=== PATIENT | female | born 1995 | race Caucasian/White ===

== ENCOUNTER 2022-03-20 07:16 | Outpatient (REF) | payer BC, SELFPAY ==
[2022-03-20 07:28] LABS: MANUAL DIFF FLAG NO
[2022-03-20 07:54] LABS: Basophils Absolute Auto 0.1 X10*3/uL (0.0-0.2); Basophils Percent Auto 0.7 % (0-2); Eosinophils Absolute Auto 0.3 X10*3/uL (0.0-0.4); Eosinophils Percent Auto 4.4 % (0-4); Hematocrit 38.8 % (37.0-47.0); Hemoglobin 13.2 g/dl (12.0-16.0); Imm Gran Abs Auto 0.02 X10*3/uL (0.00-0.03); Imm Gran Pct Auto 0.3 % (0.0-0.4); Lymphocytes Absolute Auto 2.5 X10*3/uL (1.2-4.9); Lymphocytes Percent Auto 34.7 % (20-40); Mean Corpuscular Hemoglobin 31.4 pg (27.0-33.0); Mean Corpuscular Volume 92.4 fL (80.0-98.0); Monocytes Absolute Auto 0.7 X10*3/uL (0.1-1.2); Monocytes Percent Auto 10.1 % (2-11); Neutrophils Absolute Auto 3.5 x10*3/uL (2.0-8.3); Neutrophils Percent Auto 49.8 % (45-73); Platelet Count 267 X10*3/uL (160-400); Red Cell Distribution Width 12.5 % (11.0-16.0); White Blood Count 7.1 X10*3/uL (4.8-10.8)
[2022-03-20 08:36] LABS: HBS Num1 8.66 mIU/mL (0-7.99); HBc Num1 0.09 S/CO (0.00-0.79); HBsAGNum1 0.25 S/CO (0.00-0.99); Hepatitis B Core Antibody Nonreactive (Nonreactive); Hepatitis B Surface Antigen Negative (Negative); ~HepC Num1 0.16 S/CO (0.00-0.79); ~Hepatitis C Antibody Nonreactive (Nonreactive)
[2022-03-20 08:42] LABS: Alanine Aminotransferase 11 U/L (0-31); Albumin Level 4.1 g/dL (3.5-5.0); Alkaline Phosphatase 52 U/L (39-117); Anion Gap 10 (12-20); Aspartate Amino Transferase 18 U/L (5-31); Bilirubin Total 0.8 mg/dL (0.0-1.0); Blood Urea Nitrogen 13 mg/dL (9-16); Calcium 9.2 mg/dL (8.4-10.2); Carbon Dioxide 25 mmol/L (22-29); Chloride 106 mmol/L (96-108); Cholesterol 136 mg/dL; Estimated Glomerular Filt Rate > 60; Glucose Fasting 81 mg/dL (60-99); HDL Cholesterol 48 mg/dL; LDL Cholesterol Calculated 80 mg/dl; Potassium 4.1 mmol/L (3.3-5.1); Sodium 137 mmol/L (135-145); TSH reflex Free T4 4.14 uIU/mL (0.32-4.0); Total Protein 6.9 g/dL (6.5-8.0); Triglycerides 41 mg/dL
[2022-03-20 09:33] LABS: Free T4 (Free Thyroxine) 0.98 ng/dL (0.71-1.85)
[2022-03-20 10:37] LABS: HBS Num2 10.59 mIU/mL (0-7.99); HBS Num3 10.22 mIU/mL (0-7.99); ~Hepatitis B Surface Antibody GRAYZONE (Nonreactive)
== END 2022-03-20 07:17 | disposition home or self-care (01) ==
LOC: HO.LAB 07:16
PROVIDERS: PCP Hospitalist; Visit Provider Hospitalist
DX: Z00.00 Encounter for general adult medical examination without abnormal findings (principal); Z78.9 Other specified health status
CPT/HCPCS: 36415; 80053; 80061; 84439; 84443; 85025; 86704; 86706; 86803; 87340

== ENCOUNTER 2023-07-09 08:49 | Outpatient (AMB) | payer BC, SELFPAY ==
--- NOTE | 2023-07-09 08:53 | A.OFFPC_ITS ---
Vital Signs 07/09/23 08:55 Height 5 ft 6 in Weight 160 lb BMI 25.8 BP 114/70 Blood Pressure Location Lt brachial Position Sitting Intake Visit Reasons: Transfer Of Care Dr. 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 Accompanied by: Self / Same As Patient Allergies No Known Allergies Allergy (Verified 07/09/23 09:03) Medication List - Last Reconciled 07/09/23 by Devi Boss MD cetirizine (Zyrtec) 10 mg PO DAILY PRN Tobacco use date assessed: 07/09/23 Dental Screening Dental Screen Date: 07/09/23 Did you have a dental visit in the last 12 months?: Yes Did you have a dental problem in the last 6 months where you did not have access to dental care?: No Was dental information given to patient?: Patient has dentist HPI HPI Comments History of Present Illness Details This is a 28 year female that comes for her physical exam. Last Pap smear was February 2023 as per patient. No chest pain or shortness of breath. Has family history of celiac disease in aunt. No change in bowel or bladder habits. [facility] Medical History Eczema Surgical History No pertinent past surgical history Family History (Updated 07/09/23 @ 09:07 by Devi Boss MD) Mother Diabetes Arthritis Father Heart disease Maternal Grandfather Lymphoma Maternal Grandmother Colon cancer Social History (Updated 07/09/23 @ 09:08 by Devi Boss MD) Household Members: Significant Other Housing: House Alcohol intake: current Alcohol intake frequency: a few times a month Alcohol type: hard liquor Patient Tobacco Use Status: Never used Tobacco e-Cigarette/Vaping Use: Never Used Second Hand Smoke Exposure: No service: No Current occupational status: employed Current occupation: nurse Current occupational exposures/hazards: No Sexual orientation: Straight/Heterosexual Gender identity: Female Cognitive needs: No Hearing needs: No Vision needs: Yes Questionnaire PHQ-9 Over the last 2 weeks, how often have you been bothered by any of the following problems? 1. Little interest or pleasure in doing things: not at all 2. Feeling down, depressed, or hopeless: not at all 3. Trouble falling or staying asleep, or sleeping too much: not at all 4. Feeling tired or having little energy: not at all 5. Poor appetite or overeating: not at all 6. Feeling bad about yourself - or that you are a failure or have let yourself or your family down: not at all 7. Trouble concentrating on things, such as reading the newspaper or watching television: not at all 8. Moving or speaking so slowly that other people could have noticed. Or the opposite - being so fidgety or restless that you have been moving around a lot more than usual: not at all 9. Thoughts that you would be better off or of hurting yourself in some way: not at all Total score: 0 Depression Screening Interpretation: Negative Depression Screening Done: Yes 69470 - PHQ-9 Billing: Yes Source: Developed by Drs. Omid Jaeger, Ju Hicks, Salomón Valdivia and colleagues, with an educational ady from [employer]. Thrive Questionnaire Date Thrive assessed: 07/09/23 I am a: Patient What is your living situation today?: I have a steady place to live Within the past 12 months, did the food you bought not last and you didn't have the money to get more?: Never true Within the past 12 months, did you worry whether your food would run out before you got money to buy more?: Never true Do you have trouble paying for medicines?: No Do you have trouble getting transportation to medical appointments?: No Do you have trouble paying your heating and electricity bill?: No Do you have trouble taking care of your child, family member or friend?: No Do you have trouble with day-to-day activities such as bathing, preparing meals, shopping, managing finances, etc.?: No Are you currently unemployed and looking for a job?: No Are you interested in more education?: No Please select the resources that you would like help with: None Currently or been in a relationship where the following occur: no concerns reported THRIVE Score: 0 AUDIT C Alcohol Use Questionnaire (AUDIT-C) 1. How often do you have a drink containing alcohol?: Monthly or less 2. How many drinks containing alcohol do you have on a typical day when you are drinking?: 1 or 2 3. How often do you have six or more drinks on one occasion?: Never Total Score: 1 CHUCKIE-7 AMB Questionnaire CHUCKIE-7 Date CHUCKIE - 7 assessed: 07/09/23 Feeling nervous, anxious, or on edge: 0 = Not at all Not being able to stop or control worryin = Not at all Worrying too much about different things: 0 = Not at all Trouble relaxin = Not at all Being so restless that it is hard to sit still: 0 = Not at all Becoming easily annoyed or irritable: 0 = Not at all Feeling afraid as if something awful might happen: 0 = Not at all Total CHUCKIE-7 score (0-4 normal; 5-9 mild; 10-14 moderate; 15-21 severe): 0 Source: Developed by Drs. Omid Jaeger, Ju Hicks, Salomón Valdivia and colleagues, with an educational ady from [employer]. CHUCKIE-7 Assessment Billing CHUCKIE-7 Assessment Tool: CHUCKIE-7 Assessment 84814 Review of Systems Const All systems reviewed & are unremarkable except as noted in HPI and below Eyes Reports no additional complaints, Denies change in vision and Denies other visual disturbances Card Denies chest pain at rest, Denies chest pain with activity, Denies edema, Denies irregular heart rhythm, Denies claudication, Denies dyspnea, Denies dyspnea on exertion, Denies orthopnea, Denies paroxysmal nocturnal dyspnea and Denies slow heart rate Resp Denies cough, Denies dyspnea and Denies dyspnea on exertion GI Denies abdominal pain, Denies change in bowel habits, Denies excessive flatus, Denies nausea and Denies vomiting Denies urinary incontinence, Denies urinary hesitancy and Denies urinary urgency Musc Denies abnormal gait, Denies atrophy, Denies deformity and Denies limited range of motion Skin/Breast Denies bleeding lesions, Denies changing lesions and Denies rash Neuro Denies abnormal gait and Denies lack of coordination Physical exam (Primary Care) Vital Signs: Last Vital Signs BP 114/70 07/09/23 08:55 BMI result Body Mass Index 25.8 Tobacco/Smoking Status: Tobacco use Status Tobacco use date assessed 07/09/23 07/09/23 09:01 Patient Tobacco Use Status Never used Tobacco 07/09/23 09:08 e-Cigarette/Vaping Use Never Used 07/09/23 09:08 PHQ-9: PHQ-9 Score PHQ-9: Total score 0 07/09/23 09:10 Depression Screening Interpretation: Negative Thrive Assessment: Date of Thrive Assessment Date Thrive assessed 07/09/23 07/09/23 09:01 Currently or been in a relationship where the following occur: no concerns reported Const Orientation/consciousness: patient oriented x3 HENMT Head: Yes normal to inspection, Yes normocephalic and Yes atraumatic Ears: external ears normal Eyes General: appearance normal, both eyes and all related structures Eyelids: Yes eyelids normal Conjunctivae: conjunctivae normal Neck Neck: Yes normal visual inspection and Yes supple Resp Effort & Inspection: normal respiratory effort Auscultation: clear to auscultation bilaterally Cardio Jugular venous distension: no JVD Rate: regular rate Rhythm: regular rhythm Heart sounds: S1 normal heart sound present and S2 normal heart sound present GI Inspection: Yes normal to inspection Palpation (GI): Soft to palpation and nontender Auscultation: normal bowel sounds Skin General skin exam: no rashes or lesions noted Neuro General: patient oriented x3 and no focal motor deficits Extrem General: Yes full ROM Psych Appearance: grossly normal Assessment and Plan Assessment & Plan (1) Physical exam: Code(s): Z00.00 - Encounter for general adult medical examination without abnormal findings Plan: Repeat in a year. Orders: Orders Celiac Diagnostic Gliadin TTG Today Z83.79 - Family history of other diseases of the digestive system Free T4 (Free Thyroxine) Today R79.89 - Other specified abnormal findings of blood chemistry Thyroglobulin Antibodies Today R79.89 - Other specified abnormal findings of blood chemistry Thyroid Peroxidase Antibodies Today R79.89 - Other specified abnormal findings of blood chemistry Lipid Panel Today Z00.00 - Encounter for general adult medical examination without abnormal findings Comprehensive [place]. Panel Fast Today Z00.00 - Encounter for general adult medical examination without abnormal findings Complete Blood Count Auto Diff Today J30.2 - Other seasonal allergic rhinitis Hepatitis B Profile Today Z13.9 - Encounter for screening, unspecified Thyroid Stimulating Hormone Today R79.89 - Other specified abnormal findings of blood chemistry Coding Level of Care Code Est Pt Prev Care 18-39y(44212) Diagnoses Physical exam Z00.00 Additional Codes CHUCKIE-7 Assessment Billing - CHUCKIE-7 Assessment Tool: CHUCKIE-7 Assessment 13325 ([id number]) Time Spent (min) 31
[2023-07-09 08:55] VITALS: BP 114/70; BMI 25.8
== END 2023-07-09 09:32 | disposition home or self-care (01) ==
PROVIDERS: PCP Hospitalist; Visit Provider Internal Medicine
DX: Z00.00 Encounter for general adult medical examination without abnormal findings (principal)
CPT/HCPCS: 99395

== ENCOUNTER 2023-07-17 06:47 | Outpatient (REF) | payer BC, SELFPAY ==
[2023-07-17 06:59] LABS: MANUAL DIFF FLAG NO
[2023-07-17 07:43] LABS: Basophils Absolute Auto 0.1 X10*3/uL (0.0-0.2); Basophils Percent Auto 0.9 % (0-2); Eosinophils Absolute Auto 0.2 X10*3/uL (0.0-0.4); Hematocrit 39.4 % (37.0-47.0); Hemoglobin 13.3 g/dl (12.0-16.0); Imm Gran Abs Auto 0.01 X10*3/uL (0.00-0.03); Imm Gran Pct Auto 0.2 % (0.0-0.4); Lymphocytes Absolute Auto 2.7 X10*3/uL (1.2-4.9); Lymphocytes Percent Auto 45.6 % (20-40); Mean Corpuscular HGB Conc 33.8 g/dl (31.0-35.0); Mean Corpuscular Hemoglobin 31.1 pg (27.0-33.0); Mean Corpuscular Volume 92.3 fL (80.0-98.0); Mean Platelet Volume 10.2 fL (9.4-12.3); Monocytes Absolute Auto 0.6 X10*3/uL (0.1-1.2); Monocytes Percent Auto 10.2 % (2-11); Neutrophils Absolute Auto 2.3 x10*3/uL (2.0-8.3); Neutrophils Percent Auto 39.1 % (45-73); Platelet Count 248 X10*3/uL (160-400); Red Blood Count 4.27 X10*6/uL (4.20-5.50); Red Cell Distribution Width 13.1 % (11.0-16.0); White Blood Count 5.8 X10*3/uL (4.8-10.8)
[2023-07-17 07:47] LABS: Alanine Aminotransferase 11 U/L (0-31); Albumin Level 4.1 g/dL (3.5-5.0); Alkaline Phosphatase 51 U/L (39-117); Anion Gap 9 (12-20); Aspartate Amino Transferase 16 U/L (5-31); Bilirubin Total 0.5 mg/dL (0.0-1.0); Blood Urea Nitrogen 13 mg/dL (9-16); Calcium 8.9 mg/dL (8.4-10.2); Carbon Dioxide 27 mmol/L (22-29); Chloride 108 mmol/L (96-108); Cholesterol 138 mg/dL (<200); Estimated Glomerular Filt Rate > 60; Glucose Fasting 83 mg/dL (60-99); HDL Cholesterol 46 mg/dL (>40); LDL Cholesterol Calculated 84 mg/dL (<100); Potassium 4.2 mmol/L (3.3-5.1); Sodium 140 mmol/L (135-145); Total Protein 7.1 g/dL (6.5-8.0); Triglycerides 41 mg/dL (<150)
[2023-07-17 08:03] LABS: Free T4 (Free Thyroxine) 0.98 ng/dL (0.71-1.85); Thyroid Stimulating Hormone 3.02 uIU/mL (0.32-4.0)
[2023-07-17 08:07] LABS: HBS Num1 11.12 mIU/mL (0-7.99); HBc Num1 0.11 S/CO (0.00-0.79); HBsAGNum1 0.44 S/CO (0.00-0.99); Hepatitis B Core Antibody Nonreactive (Nonreactive); Hepatitis B Surface Antigen Negative (Negative)
[2023-07-17 08:59] LABS: HBS Num2 11.23 mIU/mL (0-7.99); HBS Num3 11.66 mIU/mL (0-7.99); ~Hepatitis B Surface Antibody GRAYZONE (Nonreactive)
[2023-07-18 10:48] LABS: Thyroglobulin Antibodies <1 IU/mL (< or = 1); Thyroid Peroxidase Antibodies 6 IU/mL (<9)
[2023-07-18 22:08] LABS: Gliadin Deamidated IgA Ab <1.0 U/mL; Gliadin Deamidated IgG Ab <1.0 U/mL; Immunoglobulin A 176 mg/dL (47-310); Transglutaminase Ab IgG <1.0 U/mL; Transglutaminase IgA <1.0 U/mL
== END 2023-07-17 06:48 | disposition home or self-care (01) ==
LOC: HO.LAB 06:47
PROVIDERS: PCP Internal Medicine; Visit Provider Internal Medicine
DX: Z00.00 Encounter for general adult medical examination without abnormal findings (principal); Z13.9 Encounter for screening, unspecified; J30.2 Other seasonal allergic rhinitis; R79.89 Other specified abnormal findings of blood chemistry; Z83.79 Family history of other diseases of the digestive system; R94.6 Abnormal results of thyroid function studies
CPT/HCPCS: 36415; 80053; 80061; 82784; 84439; 84443; 85025; 86258; 86364; 86376; 86704; 86706; 86800; 87340

== ENCOUNTER 2023-10-15 16:43 | Outpatient (AMB) | payer BC, SELFPAY ==
--- NOTE | 2023-10-15 17:06 | AM.OFFVISNUR ---
Intake Intake Visit Reasons: Hep B vaccine Allergies No Known Allergies Allergy (Verified 07/09/23 09:03) Immunizations Engerix-B (PF) 20 mcg/mL intramuscular syringe Performing Provider: Devi Boss MD Performing Location: [facility] Administered by: Kindra Auguste RN on 10/15/23 17:09 Dose Route Admin Location Dispensed Lot Number Expiration Date NDC Size Maker 1 mL IM Right Deltoid 1 mL [id number] 03/28/24 [id number] [employer] VIS Given Date VIS Provided VIS Publication Date 10/15/23 Single Vaccine 22 Eligibility Eligibility Date Funding Source Not [facility] Eligible 10/15/23 Private Recombivax HB (PF) 10 mcg/mL intramuscular suspension Performing Provider: Devi Boss MD Performing Location: [facility] Documented (not given) by: Kindra Auguste RN on 10/15/23 17:07 Reason Not Given: Not Given Coding Assessment & Plan Assessment & Plan Orders: Orders Hepatitis B Adult Immunization Today Z23 - Encounter for immunization Hepatitis B Adult Immunization Today Z23 - Encounter for immunization Medications: New Engerix-B (PF) (hepatitis B virus vacc.rec(PF)) 1 mL IM ONCE 1 mL 0RF NS Z23 - Encounter for immunization
== END 2023-10-15 17:11 | disposition home or self-care (01) ==
PROVIDERS: PCP Internal Medicine; Visit Provider Internal Medicine
DX: Z23 Encounter for immunization (principal)
CPT/HCPCS: 90471; 90746

== ENCOUNTER 2023-11-14 16:36 | Outpatient (AMB) | payer BC, SELFPAY ==
--- NOTE | 2023-11-14 16:53 | AM.OFFVISNUR ---
Intake Visit Reasons: Hep B vaccine Allergies No Known Allergies Allergy (Verified 07/09/23 09:03) Assessment & Plan Assessment & Plan Orders: Orders Hepatitis B Adult Immunization Today Z23 - Encounter for immunization Medications: New Engerix-B (PF) (hepatitis B virus vacc.rec(PF)) 1 mL IM ONCE 1 mL 0RF NS Z23 - Encounter for immunization
== END 2023-11-14 16:51 | disposition home or self-care (01) ==
PROVIDERS: PCP Internal Medicine; Visit Provider Internal Medicine
DX: Z23 Encounter for immunization (principal)
CPT/HCPCS: 90471; 90746

== ENCOUNTER → 2024-05-18 16:22 | Outpatient (BNVA) | payer OTHER, SELFPAY | PROVIDERS: PCP Internal Medicine; Visit Provider Internal Medicine | DX: Z23 Encounter for immunization (principal) | CPT/HCPCS: 90471; 90746 ==

== ENCOUNTER 2024-05-18 16:24 | Outpatient (AMB) | payer OTHER, SELFPAY ==
--- NOTE | 2024-05-18 16:30 | AM.OFFVISNUR ---
Intake Visit Reasons: HEP B vaccine Allergies No Known Allergies Allergy (Verified 07/09/23 09:03) Immunizations Recombivax HB (PF) 10 mcg/mL intramuscular suspension Performing Provider: Devi Boss MD [facility] [place] [facility] Administered by: Laura Arellano LPN on 05/18/24 16:30 Dose Route Admin Location Dispensed Lot Number Expiration Date [facility] Account Development Representative 1 mL IM Left Deltoid 1 mL [id number] 12/13/25 [id number] [employer] VIS Given Date VIS Provided VIS Publication Date 05/18/24 Single Vaccine 22 Eligibility Eligibility Date Funding Source Not [facility] Eligible 05/18/24 Private Assessment & Plan Assessment & Plan Orders: Orders Hepatitis B Adult Immunization Today Z23 - Encounter for immunization Medications: New Recombivax HB (PF) (hepatitis B virus vacc.rec(PF)) 1.0 mL IM ONCE 1 mL 0RF immunization due NS Z23 - Encounter for immunization Coding
--- OUTSIDE RECORDS SUMMARY | 2024-05-18 19:51 | XMS_ITS ---
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 Name Role Phone JUANIS MARCUM Unavailable Unavailable Unavailable Unavailable Unavailable PAULINE HARDING Unavailable Unavailable PAULINE HARDING Unavailable Unavailable Unavailable Primary Care Provider Unavailrobert e Allergies Allergy Classification Reported Allergen(s) Allergy Type Date of Onset Reaction(s) Care Provider Facility Unclassified (1 source) ALLERGIES NOT ON FILE [facility] Encounters Encounter Date Encounter Type Encounter Diagnosis Care Provider Facility Start: 09-24-2023 12:00-0400 End: 09-25-2023 02:31-0400 Emergency department patient visit Activity, mountain climbing, rock climbing and wall climbing JUANIS Marcum MD Work Phone: [facility] Comment on above: Injury while rock cl imbing (Primary Dx) End: 09-25-2023 [id number] [facility] Emergency department [facility] Immunizations Immunization Date Immunization Notes Care Provider Fa cility 09-24-2023 tetanus toxoid, redu fannie diphtheria toxoid, and acellular pertussis vaccine, adsorbed Juanis Marcum MD Work Phone: [facility] Work Phone: Medications Completed/Discontinued Medications Medication Drug Class(es) Dates Sig (Normalized) Sig (Original) ceFAZolin (ANCEF) 2 g in 20 mL SWFI syringe (premix) (1 source) Start: 09-24-2023 End: 09-24-2023 ceFAZolin (ANCEF) 2 g in 20 mL SWFI syringe (premix) iohexol (OMNIPAQUE) 350 mg/mL injection 130 mL (1 source) Start: 09-24-2023 End: 09-24-2023 iohexol (OMNIPAQUE) 350 mg/mL injection 130 mL 50 ML sodium chloride 9 MG/ML Injection (1 source) Start: 09-24-2023 End: 09-25-2023 sodium chloride 0.9 % (NS) bolus Payers Date Payer Normalized Payer BLUE CROSS OUT [facility] BLUE CROSS/BLUE SHIELD [id number] 04-22-2023 [id number] Plan of Treatment Date Care Activity Detail Author Start: 09-23-2033 DTaP/Tdap/Td Vaccine s (2 - Td or Tdap) DTaP/Tdap/Td Vaccines (2 - Td or Tdap) [facility] Start: 11-21-2023 Administration of influenza vaccine Influenza Vaccine [facility] Start: 12-21-2022 COVID-19 Vaccine ( season) COVID-19 Vaccine ( season) [facility] Start: 06-26-2015 Microscopic observat ion [Identifier] in Cervix by Cyto stain Pap Smear (Ages 21-65) [facility] Start: 2013 Hepatitis B Vaccines (1 of 3 - 19+ 3-dose series) Hepatitis B Vaccines (1 of 3 - 19+ 3-dose series) [facility] Start: 06-26-2007 HIV Screening HIV Screening [facility] Start: 1994 Hepatitis C screening Hepatiti s C Virus Screening [facility] End: 09-24-2023 Amphetamine Screen, Urine Amphetamine Screen, Urine Lab Routine STAT for 1 Occurrences starting 09/24/2023 until 09/24/2023 [facility] Work Phone: Comment on above: STAT for 1 Occurrenc es starting 09/24/2023 until 09/24/2023 End: 09-24-2023 Benzodiazepine Screen, Urine Benzodiazepine Screen, Urine Lab Routine STAT for 1 Occurrences starting 09/24/2023 until 09/24/2023 [facility] Comment on above: STAT for 1 Occurrenc es starting 09/24/2023 until 09/24/2023 End: 09-24-2023 Cannabinoid Screen, Urine Cannabinoid Screen, Urine Lab Routine STAT for 1 Occurrences starting 09/24/2023 until 09/24/2023 [facility] Comment on above: STAT for 1 Occurrenc es starting 09/24/2023 until 09/24/2023 End: 09-24-2023 Cocaine Screen, Urine Cocaine Screen, Urine Lab Routine STAT for 1 Occurrences starting 09/24/2023 until 09/24/2023 [facility] Comment on above: STAT for 1 Occurrenc es starting 09/24/2023 until 09/24/2023 End: 09-24-2023 Fentanyl Screen, Urine Fentanyl Screen, Urine Lab Routine STAT for 1 Occurrences starting 09/24/2023 until 09/24/2023 [facility] Comment on above: STAT for 1 Occurrenc es starting 09/24/2023 until 09/24/2023 End: 09-24-2023 Opiate Screen, Urine Opiate Screen, Urine Lab Routine STAT for 1 Occurrences starting 09/24/2023 until 09/24/2023 [facility] Comment on above: STAT for 1 Occurrenc es starting 09/24/2023 until 09/24/2023 End: 09-24-2023 Phencyclidine (PCP) Screen, Urine Phencyclidine (PCP) Screen, Urine Lab Routine STAT for 1 Occurrences starting 09/24/2023 until 09/24/2023 [facility] Comment on above: STAT for 1 Occurrenc es starting 09/24/2023 until 09/24/2023 Problems Active Problems Problem Classification Problem Date Last Recorded Documented Date Chronic Condition Indicator Provider E Codes: Unspecified (7 sources) Activity, mountain climbing, rock climbing and wall climbing; Translations: [Activities involving mountain climbing, rock climbing and wall climbing] 09-25-2023 Not applicable JUANIS MARCUM E Codes: Fall (3 sources) Fall; Translations: [Fall] 09-24-2023 Procedures Date Procedure Procedure Detail Performing Clinician Start: 09-24-2023 End: 09-24-2023 Radex elbow 2 views completed Pauline Rogers Work Phone: Start: 09-24-2023 Ct cervical spine w/ o contrast material completed Pauline Harding PA-C Work Phone: Start: 09-24-2023 Ct head/brain w/o co ntrast material completed Pauline Harding PA-C Work Phone: Start: 09-24-2023 Diagnostic computed tomography thorax w/contrast completed Pauline Harding PA-C Work Phone: Start: 09-24-2023 Portable XR Chest Views completed Pauline [facility] Work Phone: Start: 09-24-2023 ABO CONFIRMATION completed Yaron [facility] Work Phone: Start: 09-24-2023 Amylase [Enzymatic activity/volume] in Serum or Plasma completed Pauline [employer] Work Phone: Start: 09-24-2023 Blood typing serologic abo completed Pauline [employer] Work Phone: Start: 09-24-2023 End: 09-24-2023 Comprehensive metabolic panel completed Pauline Harding PA-C Work Phone: Start: 09-24-2023 Creatine kinase [Enz ymatic activity/volume] in Serum or Plasma completed Pauline Harding PA-C Work Phone: Start: 09-24-2023 Ethanol [Mass/volume ] in Serum or Plasma completed Pauline Harding PA-C Work Phone: Start: 09-24-2023 Lactate [Moles/volum e] in Serum or Plasma completed Pauline [facility] Work Phone: Start: 09-24-2023 Lipase [Enzymatic activity/volume] in Serum or Plasma completed Pauline [facility] Work Phone: Start: 09-24-2023 Magnesium [Mass/volu me] in Serum or Plasma completed Pauline [employer] Work Phone: Start: 09-24-2023 Phosphate [Mass/volu me] in Serum or Plasma completed Pauline [facility] Work Phone: Results Test Name Value Interpretation Reference Range Facility Date Time Result Note ABO Confirmationon ABO and Rh group (Bld) Blood group O Rh(D) positive [facility] 09-23 22:36 -0400 <tr><td>ABO/Rh< /td><td>O POSITIVE</td><t d></td><td></td ><td>09/24/2023 10:33 PM EDT</td><td>[facility]</td><t d></td></tr> Amylaseon 09-24-2023 Amylase [Catalytic activity/Vol] 66 U/L 28 - 100 U/L [facility] 09-23 22:15 -0400 Amylase 66 28 - 100 U/L 09/24/2023 10:15 PM EDT [facility] Amylase SerPl-cCncon 024 Amylase [Catalytic activity/Vol] 66 28-100 U/L [facility] 09-23 22:15 -0400 Attachmentson 09-24-2023 Radiology Study observation (narrative) [facility] CBC, with Differentialon Basophils Auto (Bld) [#/Vol] 0.06 [facility] 09-23 21:47 -0400 <tr><td>Abs Basophils Auto</td><td>0. 06</td><td>0.00 - 0.20 Thou/uL</td><td ></td><td>09/23 9:47 PM EDT</td><td>[facility]</td><t d></td></tr> Basophils/100 WBC Auto (Bld) 0.5 % [facility] 09-23 21:47 -0400 Eosinophils Auto (Bld) [#/Vol] 0.17 [facility] 09-23 21:47 -0400 <tr><td>Abs Eosinophils Auto</td><td>0. 17</td><td>0.00 - 0.70 Thou/uL</td><td ></td><td>09/23 9:47 PM EDT</td><td>[facility]</td><t d></td></tr> Eosinophils/10 0 WBC Auto (Bld) 1.5 % [facility] 09-23 21:47 -0400 RBC Auto (Bld) [#/Vol] 3.94 Low [facility] 09-23 21:47 -0400 <tr><td>Red Blood Cell Count</td><td>< content>3.94</c ontent><content > (L)</content></ td><td>4.00 - 5.40 Mil/uL</td><td> </td><td>2023 9:47 PM EDT</td><td>[facility]</td><t d></td></tr> Hematocrit Auto (Bld) [Volume fraction] 36.6 35.0-47.0 % [facility] 09-23 21:47 -0400 Hemoglobin (Bld) [Mass/Vol] 12.3 11.7-15.7 g/dL [facility] 09-23 21:47 -0400 Lymphocytes Auto (Bld) [#/Vol] 2.30 [facility] 09-23 21:47 -0400 <tr><td>Abs Lymphocytes Auto</td><td>2. 30</td><td>1.50 - 4.50 Thou/uL</td><td ></td><td>09/23 9:47 PM EDT</td><td>[facility]</td><t d></td></tr> Lymphocytes/10 0 WBC Auto (Bld) 20.3 % [facility] 09-23 21:47 -0400 MCH Auto (RBC) [Entitic mass] 31.2 26.0-34.0 pg [facility] 09-23 21:47 -0400 MCHC Auto (RBC) [Mass/Vol] 33.6 30.0-36.0 g/dL [facility] 09-23 21:47 -0400 MCV Auto (RBC) [Entitic vol] 93 80-100 fL [facility] 09-23 21:47 -0400 Monocytes Auto (Bld) [#/Vol] 0.63 [facility] 09-23 21:47 -0400 <tr><td>Abs Monocytes Auto</td><td>0. 63</td><td>0.20 - 1.50 Thou/uL</td><td ></td><td>09/23 9:47 PM EDT</td><td>[facility]</td><t d></td></tr> Monocytes/100 WBC Auto (Bld) 5.6 % [facility] 09-23 21:47 -0400 Neutrophils Auto (Bld) [#/Vol] 8.09 High [facility] 09-23 21:47 -0400 <tr><td>Abs Neutrophils Auto</td><td><c ontent>8.09</co ntent><content> (H)</content></ td><td>2.00 - 7.50 Thou/uL</td><td ></td><td>09/23 9:47 PM EDT</td><td>[facility]</td><t d></td></tr> Neutrophils/10 0 WBC Auto (Bld) 71.4 % [facility] 09-23 21:47 -0400 Platelet mean volume Auto (Bld) [Entitic vol] 10.3 7.5-12.5 fL [facility] 09-23 21:47 -0400 Platelets Auto (Bld) [#/Vol] 288 [facility] 09-23 21:47 -0400 <tr><td>Platele t Count</td><td>2 88</td><td>150 - 450 Thou/uL</td><td ></td><td>09/23 9:47 PM EDT</td><td>[facility]</td><t d></td></tr> Erythrocyte distribution width Auto (RBC) [Ratio] 13.1 11.5-14.5 % [facility] 09-23 21:47 -0400 WBC Auto (Bld) [#/Vol] 11.3 High [facility] 09-23 21:47 -0400 <tr><td>White Blood Cell Count</td><td>< content>11.3</c ontent><content > (H)</content></ td><td>4.0 - 11.0 Thou/uL</td><td ></td><td>09/23 9:47 PM EDT</td><td>[facility]</td><t d></td></tr> Immature granulocytes/1 00 WBC Auto (Bld) 0.7 % [facility] 09-23 21:47 -0400 Immature granulocytes Auto (Bld) [#/Vol] 0.08 [facility] 09-23 21:47 -0400 <tr><td>Abs Immature Granulocytes</t d><td>0.08</td> <td>0.00 - 0.10 Thou/uL</td><td ></td><td>09/23 9:47 PM EDT</td><td>[facility]</td><t d></td></tr> CK SerPl-cCncon 09-24-2023 CK [Catalytic activity/Vol] 97 24-173 U/L [facility] 09-23 22:15 -0400 CT Chest Abdomen Pelvis with IV Contraston 09-24-2023 1. No acute traumatic injuries are identified in the chest, abdomen, and pelvis. 2. No fracture or malalignment in the thoracolumbar spine. 3. Hyperattenuatin g soft tissue prominence in the anterior mediastinum. 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 Further evaluation with dedicated nonemergent MRI can be performed if clinically indicated. Sepideh Palacio MD Diagnostic Diver Tender I personally reviewed the images and the Resident's preliminary report and AGREE with the report as it is now presented ([email or web address]). [facility]ISON 09-23 23:24 -0400 1. No acute traumatic injuries are identified in the chest, abdomen, and pelvis. 2. No fracture or malalignment in the thoracolumbar spine. 3. Hyperattenuatin g soft tissue prominence in the anterior mediastinum. 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 Further evaluation with dedicated nonemergent MRI can be performed if clinically indicated. Sepideh Palacio MD Diagnostic Diver Tender I personally reviewed the images and the Resident's preliminary report and AGREE with the report as it is now presented ([email or web address]). EXAMINATION: CT CHEST, ABDOMEN AND PELVIS WITH CONTRAST CT THORACIC AND LUMBAR SPINE WITHOUT CONTRAST (REFORMATS) CLINICAL INFORMATION: Status post 30ft fall. COMPARISON: None available. TECHNIQUE: Multidetector volumetric imaging was performed from the thoracic inlet through the pubic symphysis following the administration of: Oral contrast: No Intravenous contrast: 130 mL Omnipaque 350 No contrast reaction reported Sagittal and coronal reformatted images were obtained on the technologist workstation. In addition, thin section, high resolution reconstruction, targeted reformatted images through the thoracic and lumbar spine were obtained with coronal and sagittal high resolution reformatted images as well. This CT examination was performed using dose optimization techniques as appropriate, variously including the following: *Automated exposure control *Adjustment of mA and/or kV according to patient size (this includes techniques or standardized protocols for targeted exams where dose is matched to indication/reas on for exam; i.e. extremities or head) *Use of iterative reconstruction technique Total exam dose-length product: 490.3 mGy-cm FINDINGS: CHEST: VASCULAR: The aorta is normal; no evidence of dissection, aneurysm, or traumatic aortic injury. The central pulmonary arteries enhance normally. AORTIC ISTHMUS: Normal. MEDIASTINUM: No mediastinal fluid or hematoma. No pneumomediastin um. There is hyperattenuatin g soft tissue prominence in the anterior mediastinum with Hounsfield units 53 (303:200). No hilar or mediastinal lymphadenopathy . LUNG: Central airways are patent. No focal consolidation, masses or nodules. CORONARY ARTERY CALCIFICATION: None visualized on this study. PLEURA: No pleural effusion. No pneumothorax. No pleural mass or thickening. CHEST WALL/AXILLA: No traumatic injuries. No axillary lymphadenopathy . DIAPHRAGMATIC RUPTURE: Absent ABDOMEN/PELVIS: LIVER : The liver is normal in size, shape, and attenuation. No focal hepatic lesion or biliary ductal dilatation is present. GALLBLADDER, AND BILIARY TREE The gallbladder is unremarkable with no evidence of radiopaque gallstones, gallbladder wall thickening, or obvious pericholecystic inflammatory changes. PANCREAS: Normal; no mass or surrounding fluid. SPLEEN: Normal size. No focal lesion. ADRENAL GLANDS: Normal; no mass. KIDNEYS AND URETERS: The kidneys are normal in size, shape, and attenuation. No hydronephrosis, hydroureter, or calculi. URINARY BLADDER: No focal mass or wall thickening seen. No bladder calculi. GASTROINTESTINA L TRACT: Stomach and small bowel non-dilated. No colonic wall thickening or pericolonic inflammatory changes. Moderate colonic stool burden. Normal appendix. VASCULAR STRUCTURES: There is no evidence of aortic or iliac injury. The inferior vena cava is intact. ACTIVE BLEEDING: No. LYMPH NODES: No lymphadenopathy . The aorta is unremarkable. PELVIC VISCERA: Normal CT appearance of the uterus. IUD is observed within the uterus. No adnexal mass seen. FREE FLUID: None. ABDOMINAL WALL: No significant hernia is appreciated. THORACIC AND LUMBAR SPINE: No acute fracture or malalignment in the thoracolumbar spine. Normal sagittal alignment of the thoracic and lumbar spine. Vertebral body heights are normal. Posterior elements are intact. Intervertebral disc heights are normal. OTHER OSSEOUS STRUCTURES: The imaged portions of the clavicles, scapulae, and proximal humeri are intact. No displaced rib fracture is identified. Sternum is intact. No sacral or pelvic fracture. The hips and imaged portions of the proximal femurs are intact. [facility]ISON 09-23 23:24 -0400 EXAMINATION: CT CHEST, ABDOMEN AND PELVIS WITH CONTRAST CT THORACIC AND LUMBAR SPINE WITHOUT CONTRAST (REFORMATS) CLINICAL INFORMATION: Status post 30ft fall. COMPARISON: None available. TECHNIQUE: Multidetector volumetric imaging was performed from the thoracic inlet through the pubic symphysis following the administration of: Oral contrast: No Intravenous contrast: 130 mL Omnipaque 350 No contrast reaction reported Sagittal and coronal reformatted images were obtained on the technologist workstation. In addition, thin section, high resolution reconstruction, targeted reformatted images through the thoracic and lumbar spine were obtained with coronal and sagittal high resolution reformatted images as well. This CT examination was performed using dose optimization techniques as appropriate, variously including the following: *Automated exposure control *Adjustment of mA and/or kV according to patient size (this includes techniques or standardized protocols for targeted exams where dose is matched to indication/reas on for exam; i.e. extremities or head) *Use of iterative reconstruction technique Total exam dose-length product: 490.3 mGy-cm FINDINGS: CHEST: VASCULAR: The aorta is normal; no evidence of dissection, aneurysm, or traumatic aortic injury. The central pulmonary arteries enhance normally. AORTIC ISTHMUS: Normal. MEDIASTINUM: No mediastinal fluid or hematoma. No pneumomediastin um. There is hyperattenuatin g soft tissue prominence in the anterior mediastinum with Hounsfield units 53 (303:200). No hilar or mediastinal lymphadenopathy . LUNG: Central airways are patent. No focal consolidation, masses or nodules. CORONARY ARTERY CALCIFICATION: None visualized on this study. PLEURA: No pleural effusion. No pneumothorax. No pleural mass or thickening. CHEST WALL/AXILLA: No traumatic injuries. No axillary lymphadenopathy . DIAPHRAGMATIC RUPTURE: Absent ABDOMEN/PELVIS: LIVER : The liver is normal in size, shape, and attenuation. No focal hepatic lesion or biliary ductal dilatation is present. GALLBLADDER, AND BILIARY TREE The gallbladder is unremarkable with no evidence of radiopaque gallstones, gallbladder wall thickening, or obvious pericholecystic inflammatory changes. PANCREAS: Normal; no mass or surrounding fluid. SPLEEN: Normal size. No focal lesion. ADRENAL GLANDS: Normal; no mass. KIDNEYS AND URETERS: The kidneys are normal in size, shape, and attenuation. No hydronephrosis, hydroureter, or calculi. URINARY BLADDER: No focal mass or wall thickening seen. No bladder calculi. GASTROINTESTINA L TRACT: Stomach and small bowel non-dilated. No colonic wall thickening or pericolonic inflammatory changes. Moderate colonic stool burden. Normal appendix. VASCULAR STRUCTURES: There is no evidence of aortic or iliac injury. The inferior vena cava is intact. ACTIVE BLEEDING: No. LYMPH NODES: No lymphadenopathy . The aorta is unremarkable. PELVIC VISCERA: Normal CT appearance of the uterus. IUD is observed within the uterus. No adnexal mass seen. FREE FLUID: None. ABDOMINAL WALL: No significant hernia is appreciated. THORACIC AND LUMBAR SPINE: No acute fracture or malalignment in the thoracolumbar spine. Normal sagittal alignment of the thoracic and lumbar spine. Vertebral body heights are normal. Posterior elements are intact. Intervertebral disc heights are normal. OTHER OSSEOUS STRUCTURES: The imaged portions of the clavicles, scapulae, and proximal humeri are intact. No displaced rib fracture is identified. Sternum is intact. No sacral or pelvic fracture. The hips and imaged portions of the proximal femurs are intact. Basil Pettit MD - 09/24/2023 EXAMINATION: CT CHEST, ABDOMEN AND PELVIS WITH CONTRAST CT THORACIC AND LUMBAR SPINE WITHOUT CONTRAST (REFORMATS) CLINICAL INFORMATION: Status post 30ft fall. COMPARISON: None available. TECHNIQUE: Multidetector volumetric imaging was performed from the thoracic inlet through the pubic symphysis following the administration of: Oral contrast: No Intravenous contrast: 130 mL Omnipaque 350 No contrast reaction reported Sagittal and coronal reformatted images were obtained on the technologist workstation. In addition, thin section, high resolution reconstruction, targeted reformatted images through the thoracic and lumbar spine were obtained with coronal and sagittal high resolution reformatted images as well. This CT examination was performed using dose optimization techniques as appropriate, variously including the following: *Automated exposure control *Adjustment of mA and/or kV according to patient size (this includes techniques or standardized protocols for targeted exams where dose is matched to indication/reas on for exam; i.e. extremities or head) *Use of iterative reconstruction technique Total exam dose-length product: 490.3 mGy-cm FINDINGS: CHEST: VASCULAR: The aorta is normal; no evidence of dissection, aneurysm, or traumatic aortic injury. The central pulmonary arteries enhance normally. AORTIC ISTHMUS: Normal. MEDIASTINUM: No mediastinal fluid or hematoma. No pneumomediastin um. There is hyperattenuatin g soft tissue prominence in the anterior mediastinum with Hounsfield units 53 (303:200). No hilar or mediastinal lymphadenopathy . LUNG: Central airways are patent. No focal consolidation, masses or nodules. CORONARY ARTERY CALCIFICATION: None visualized on this study. PLEURA: No pleural effusion. No pneumothorax. No pleural mass or thickening. CHEST WALL/AXILLA: No traumatic injuries. No axillary lymphadenopathy . DIAPHRAGMATIC RUPTURE: Absent ABDOMEN/PELVIS: LIVER : The liver is normal in size, shape, and attenuation. No focal hepatic lesion or biliary ductal dilatation is present. GALLBLADDER, AND BILIARY TREE The gallbladder is unremarkable with no evidence of radiopaque gallstones, gallbladder wall thickening, or obvious pericholecystic inflammatory changes. PANCREAS: Normal; no mass or surrounding fluid. SPLEEN: Normal size. No focal lesion. ADRENAL GLANDS: Normal; no mass. KIDNEYS AND URETERS: The kidneys are normal in size, shape, and attenuation. No hydronephrosis, hydroureter, or calculi. URINARY BLADDER: No focal mass or wall thickening seen. No bladder calculi. GASTROINTESTINA L TRACT: Stomach and small bowel non-dilated. No colonic wall thickening or pericolonic inflammatory changes. Moderate colonic stool burden. Normal appendix. VASCULAR STRUCTURES: There is no evidence of aortic or iliac injury. The inferior vena cava is intact. ACTIVE BLEEDING: No. LYMPH NODES: No lymphadenopathy . The aorta is unremarkable. PELVIC VISCERA: Normal CT appearance of the uterus. IUD is observed within the uterus. No adnexal mass seen. FREE FLUID: None. ABDOMINAL WALL: No significant hernia is appreciated. THORACIC AND LUMBAR SPINE: No acute fracture or malalignment in the thoracolumbar spine. Normal sagittal alignment of the thoracic and lumbar spine. Vertebral body heights are normal. Posterior elements are intact. Intervertebral disc heights are normal. OTHER OSSEOUS STRUCTURES: The imaged portions of the clavicles, scapulae, and proximal humeri are intact. No displaced rib fracture is identified. Sternum is intact. No sacral or pelvic fracture. The hips and imaged portions of the proximal femurs are intact. IMPRESSION: 1. No acute traumatic injuries are identified in the chest, abdomen, and pelvis. 2. No fracture or malalignment in the thoracolumbar spine. 3. Hyperattenuatin g soft tissue prominence in the anterior mediastinum. 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 Further evaluation with dedicated nonemergent MRI can be performed if clinically indicated. Sepideh Palacio MD Diagnostic Diver Tender I personally reviewed the images and the Resident's preliminary report and AGREE with the report as it is now presented ([email or web address]). [facility] [facility] 09-23 23:24 -0400 Basil Pettit MD - 09/24/2023 EXAMINATION: CT CHEST, ABDOMEN AND PELVIS WITH CONTRAST CT THORACIC AND LUMBAR SPINE WITHOUT CONTRAST (REFORMATS) CLINICAL INFORMATION: Status post 30ft fall. COMPARISON: None available. TECHNIQUE: Multidetector volumetric imaging was performed from the thoracic inlet through the pubic symphysis following the administration of: Oral contrast: No Intravenous contrast: 130 mL Omnipaque 350 No contrast reaction reported Sagittal and coronal reformatted images were obtained on the technologist workstation. In addition, thin section, high resolution reconstruction, targeted reformatted images through the thoracic and lumbar spine were obtained with coronal and sagittal high resolution reformatted images as well. This CT examination was performed using dose optimization techniques as appropriate, variously including the following: *Automated exposure control *Adjustment of mA and/or kV according to patient size (this includes techniques or standardized protocols for targeted exams where dose is matched to indication/reas on for exam; i.e. extremities or head) *Use of iterative reconstruction technique Total exam dose-length product: 490.3 mGy-cm FINDINGS: CHEST: VASCULAR: The aorta is normal; no evidence of dissection, aneurysm, or traumatic aortic injury. The central pulmonary arteries enhance normally. AORTIC ISTHMUS: Normal. MEDIASTINUM: No mediastinal fluid or hematoma. No pneumomediastin um. There is hyperattenuatin g soft tissue prominence in the anterior mediastinum with Hounsfield units 53 (303:200). No hilar or mediastinal lymphadenopathy . LUNG: Central airways are patent. No focal consolidation, masses or nodules. CORONARY ARTERY CALCIFICATION: None visualized on this study. PLEURA: No pleural effusion. No pneumothorax. No pleural mass or thickening. CHEST WALL/AXILLA: No traumatic injuries. No axillary lymphadenopathy . DIAPHRAGMATIC RUPTURE: Absent ABDOMEN/PELVIS: LIVER : The liver is normal in size, shape, and attenuation. No focal hepatic lesion or biliary ductal dilatation is present. GALLBLADDER, AND BILIARY TREE The gallbladder is unremarkable with no evidence of radiopaque gallstones, gallbladder wall thickening, or obvious pericholecystic inflammatory changes. PANCREAS: Normal; no mass or surrounding fluid. SPLEEN: Normal size. No focal lesion. ADRENAL GLANDS: Normal; no mass. KIDNEYS AND URETERS: The kidneys are normal in size, shape, and attenuation. No hydronephrosis, hydroureter, or calculi. URINARY BLADDER: No focal mass or wall thickening seen. No bladder calculi. GASTROINTESTINA L TRACT: Stomach and small bowel non-dilated. No colonic wall thickening or pericolonic inflammatory changes. Moderate colonic stool burden. Normal appendix. VASCULAR STRUCTURES: There is no evidence of aortic or iliac injury. The inferior vena cava is intact. ACTIVE BLEEDING: No. LYMPH NODES: No lymphadenopathy . The aorta is unremarkable. PELVIC VISCERA: Normal CT appearance of the uterus. IUD is observed within the uterus. No adnexal mass seen. FREE FLUID: None. ABDOMINAL WALL: No significant hernia is appreciated. THORACIC AND LUMBAR SPINE: No acute fracture or malalignment in the thoracolumbar spine. Normal sagittal alignment of the thoracic and lumbar spine. Vertebral body heights are normal. Posterior elements are intact. Intervertebral disc heights are normal. OTHER OSSEOUS STRUCTURES: The imaged portions of the clavicles, scapulae, and proximal humeri are intact. No displaced rib fracture is identified. Sternum is intact. No sacral or pelvic fracture. The hips and imaged portions of the proximal femurs are intact. IMPRESSION: 1. No acute traumatic injuries are identified in the chest, abdomen, and pelvis. 2. No fracture or malalignment in the thoracolumbar spine. 3. Hyperattenuatin g soft tissue prominence in the anterior mediastinum. 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 Further evaluation with dedicated nonemergent MRI can be performed if clinically indicated. Sepideh Palacio MD Diagnostic Diver Tender I personally reviewed the images and the Resident's preliminary report and AGREE with the report as it is now presented ([email or web address]). CT Head w/o contraston 09-23 No acute intracranial pathology. No acute fracture or malalignment in the cervical spine. Jan Schultz MD Diagnostic Diver Tender I personally reviewed the images and the Resident's preliminary report and AGREE with the report as it is now presented ([email or web address]). [facility] 09-23 23:17 -0400 No acute intracranial pathology. No acute fracture or malalignment in the cervical spine. Jan Schultz MD Diagnostic Diver Tender I personally reviewed the images and the Resident's preliminary report and AGREE with the report as it is now presented ([email or web address]). EXAMINATION: CT HEAD AND CERVICAL SPINE WITHOUT CONTRAST CLINICAL INFORMATION: s/p 30ft fall with headstrike COMPARISON: None available. TECHNIQUE: Imaging was performed from the skull base to vertex, and through the cervical spine without intravenous administration of contrast. This CT examination was performed using dose optimization techniques as appropriate, variously including the following: *Automated exposure control *Adjustment of mA and/or kV according to patient size (this includes techniques or standardized protocols for targeted exams where dose is matched to indication/reas on for exam; i.e. extremities or head) *Use of iterative reconstruction technique Total exam dose length product: 1208 mGy-cm FINDINGS: Head: No acute intracranial hemorrhage or evidence of edematous territorial infarction. Anderson-white matter differentiation is preserved. No abnormal attenuation within the brain parenchyma. The ventricles are normal in morphology and size. No evidence for obstructive hydrocephalus. No abnormal mass effect or midline shift. No extra-axial fluid collections. No acute soft tissue or osseous abnormalities. The mastoid air cells and visualized paranasal sinuses are clear. Cervical spine: Vertebral body heights are normal. No fractures of the vertebral bodies or posterior elements. Vertebral alignment is normal. No subluxation. The craniocervical and atlantoaxial articulations are normal. Intervertebral disc heights are normal. No significant degenerative disc disease. Facet joints are normal. Central canal and neural foramina appear patent without appreciable stenoses. No significant paravertebral soft tissue swelling. Cervical soft tissues are unremarkable. Imaged portions of the lung apices are clear. [facility] 09-23 23:17 -0400 EXAMINATION: CT HEAD AND CERVICAL SPINE WITHOUT CONTRAST CLINICAL INFORMATION: s/p 30ft fall with headstrike COMPARISON: None available. TECHNIQUE: Imaging was performed from the skull base to vertex, and through the cervical spine without intravenous administration of contrast. This CT examination was performed using dose optimization techniques as appropriate, variously including the following: *Automated exposure control *Adjustment of mA and/or kV according to patient size (this includes techniques or standardized protocols for targeted exams where dose is matched to indication/reas on for exam; i.e. extremities or head) *Use of iterative reconstruction technique Total exam dose length product: 1208 mGy-cm FINDINGS: Head: No acute intracranial hemorrhage or evidence of edematous territorial infarction. Anderson-white matter differentiation is preserved. No abnormal attenuation within the brain parenchyma. The ventricles are normal in morphology and size. No evidence for obstructive hydrocephalus. No abnormal mass effect or midline shift. No extra-axial fluid collections. No acute soft tissue or osseous abnormalities. The mastoid air cells and visualized paranasal sinuses are clear. Cervical spine: Vertebral body heights are normal. No fractures of the vertebral bodies or posterior elements. Vertebral alignment is normal. No subluxation. The craniocervical and atlantoaxial articulations are normal. Intervertebral disc heights are normal. No significant degenerative disc disease. Facet joints are normal. Central canal and neural foramina appear patent without appreciable stenoses. No significant paravertebral soft tissue swelling. Cervical soft tissues are unremarkable. Imaged portions of the lung apices are clear. Basil Pettit MD - 09/24/2023 EXAMINATION: CT HEAD AND CERVICAL SPINE WITHOUT CONTRAST CLINICAL INFORMATION: s/p 30ft fall with headstrike COMPARISON: None available. TECHNIQUE: Imaging was performed from the skull base to vertex, and through the cervical spine without intravenous administration of contrast. This CT examination was performed using dose optimization techniques as appropriate, variously including the following: *Automated exposure control *Adjustment of mA and/or kV according to patient size (this includes techniques or standardized protocols for targeted exams where dose is matched to indication/reas on for exam; i.e. extremities or head) *Use of iterative reconstruction technique Total exam dose length product: 1208 mGy-cm FINDINGS: Head: No acute intracranial hemorrhage or evidence of edematous territorial infarction. Anderson-white matter differentiation is preserved. No abnormal attenuation within the brain parenchyma. The ventricles are normal in morphology and size. No evidence for obstructive hydrocephalus. No abnormal mass effect or midline shift. No extra-axial fluid collections. No acute soft tissue or osseous abnormalities. The mastoid air cells and visualized paranasal sinuses are clear. Cervical spine: Vertebral body heights are normal. No fractures of the vertebral bodies or posterior elements. Vertebral alignment is normal. No subluxation. The craniocervical and atlantoaxial articulations are normal. Intervertebral disc heights are normal. No significant degenerative disc disease. Facet joints are normal. Central canal and neural foramina appear patent without appreciable stenoses. No significant paravertebral soft tissue swelling. Cervical soft tissues are unremarkable. Imaged portions of the lung apices are clear. IMPRESSION: No acute intracranial pathology. No acute fracture or malalignment in the cervical spine. Jan Schultz MD Diagnostic Diver Tender I personally reviewed the images and the Resident's preliminary report and AGREE with the report as it is now presented ([email or web address]). [facility] 09-23 23:17 -0400 Basil Pettit MD - 09/24/2023 EXAMINATION: CT HEAD AND CERVICAL SPINE WITHOUT CONTRAST CLINICAL INFORMATION: s/p 30ft fall with headstrike COMPARISON: None available. TECHNIQUE: Imaging was performed from the skull base to vertex, and through the cervical spine without intravenous administration of contrast. This CT examination was performed using dose optimization techniques as appropriate, variously including the following: *Automated exposure control *Adjustment of mA and/or kV according to patient size (this includes techniques or standardized protocols for targeted exams where dose is matched to indication/reas on for exam; i.e. extremities or head) *Use of iterative reconstruction technique Total exam dose length product: 1208 mGy-cm FINDINGS: Head: No acute intracranial hemorrhage or evidence of edematous territorial infarction. Anderson-white matter differentiation is preserved. No abnormal attenuation within the brain parenchyma. The ventricles are normal in morphology and size. No evidence for obstructive hydrocephalus. No abnormal mass effect or midline shift. No extra-axial fluid collections. No acute soft tissue or osseous abnormalities. The mastoid air cells and visualized paranasal sinuses are clear. Cervical spine: Vertebral body heights are normal. No fractures of the vertebral bodies or posterior elements. Vertebral alignment is normal. No subluxation. The craniocervical and atlantoaxial articulations are normal. Intervertebral disc heights are normal. No significant degenerative disc disease. Facet joints are normal. Central canal and neural foramina appear patent without appreciable stenoses. No significant paravertebral soft tissue swelling. Cervical soft tissues are unremarkable. Imaged portions of the lung apices are clear. IMPRESSION: No acute intracranial pathology. No acute fracture or malalignment in the cervical spine. aJn Schultz MD Diagnostic Diver Tender I personally reviewed the images and the Resident's preliminary report and AGREE with the report as it is now presented ([email or web address]). Calcium, Ionizedon Calcium.ionize d [Mass/Vol] 1.10 mmol/L Low 1.17 - 1.33 mmol/L [facility] 09-23 22:37 -0400 Calcium, Ionized 1.10 (L) 1.17 - 1.33 mmol/L 09/24/2023 10:37 PM EDT [facility] Complete Blood Count w/ Diff erentialon 09-24-2023 Basophils/100 WBC Auto (Bld) 0.5 % [facility] 09-23 21:47 -0400 Basophils Auto 0.5 % 09/24/2023 9:47 PM T [facility] Eosinophils/10 0 WBC Auto (Bld) 1.5 % [facility] 09-23 21:47 -0400 Eosinophils Auto 1.5 % 09/24/2023 9:47 PM [facility] Hematocrit Auto (Bld) [Volume fraction] 36.6 % 35.0 - 47.0 % [facility] 09-23 21:47 -0400 Hematocrit 36.6 35.0 - 47.0 % 09/24/2023 9:47 PM [facility] Hemoglobin (Bld) [Mass/Vol] 12.3 g/dL 11.7 - 15.7 g/dL [facility] 09-23 21:47 -0400 Hemoglobin 12.3 11.7 - 15.7 g/dL 09/24/2023 9:47 PM T [facility] Lymphocytes/10 0 WBC Auto (Bld) 20.3 % [facility] 09-23 21:47 -0400 Lymphocytes Auto 20.3 % 09/24/2023 9:47 PM [facility] MCH Auto (RBC) [Entitic mass] 31.2 pg 26.0 - 34.0 pg [facility] 09-23 21:47 -0400 MCH 31.2 26.0 - 34.0 pg 09/24/2023 9:47 PM [facility] MCHC Auto (RBC) [Mass/Vol] 33.6 g/dL 30.0 - 36.0 g/dL [facility] 09-23 21:47 -0400 MCHC 33.6 30.0 - 36.0 g/dL 09/24/2023 9:47 PM [facility] MCV Auto (RBC) [Entitic vol] 93 fL 80 - 100 fL [facility] 09-23 21:47 -0400 MCV 93 80 - 100 fL 09/24/2023 9:47 PM [facility] Monocytes/100 WBC Auto (Bld) 5.6 % [facility] 09-23 21:47 -0400 Monocytes Auto 5.6 % 09/24/2023 9:47 PM T [facility] Neutrophils/10 0 WBC Auto (Bld) 71.4 % [facility] 09-23 21:47 -0400 Neutrophils Auto 71.4 % 09/24/2023 9:47 PM EDT [facility] Platelet mean volume Auto (Bld) [Entitic vol] 10.3 fL 7.5 - 12.5 fL [facility] 09-23 21:47 -0400 MPV 10.3 7.5 - 12.5 fL 09/24/2023 9:47 PM EDT [facility] Erythrocyte distribution width Auto (RBC) [Ratio] 13.1 % 11.5 - 14.5 % [facility] 09-23 21:47 -0400 RDW 13.1 11.5 - 14.5 % 09/24/2023 9:47 PM EDT [facility] Immature granulocytes/1 00 WBC Auto (Bld) 0.7 % [facility] 09-23 21:47 -0400 Immature Granulocytes 0.7 % 09/24/2023 9:47 PM EDT [facility] Comprehensive Metabolic Pane lucio 09-24-2023 ALT [Catalytic activity/Vol] 15 10-50 U/L [facility] 09-23 22:15 -0400 Albumin [Mass/Vol] 4.3 3.5-5.0 g/dL [facility] 09-23 22:15 -0400 ALP [Catalytic activity/Vol] 51 32-122 U/L [facility] 09-23 22:15 -0400 AST [Catalytic activity/Vol] 29 10-50 U/L [facility] 09-23 22:15 -0400 Bilirubin [Mass/Vol] 0.5 0.2-1.0 mg/dL [facility] 09-23 22:15 -0400 Urea nitrogen/Creat inine [Mass ratio] 19 [facility] 09-23 22:15 -0400 <tr><td>BUN/Cre atinine Ratio</td><td>1 9</td><td>10.0 - 25.0 Ratio</td><td>< /td><td> 024 10:15 PM EDT</td><td>[facility]</td><t d></td></tr> Calcium [Mass/Vol] 9.2 8.7-10.5 mg/dL [facility] 09-23 22:15 -0400 Chloride [Moles/Vol] 103 98-107 mmol/L [facility] 09-23 22:15 -0400 CO2 [Moles/Vol] 23 22-33 mmol/L [facility] 09-23 22:15 -0400 Creatinine [Mass/Vol] 0.8 0.4-1.1 mg/dL [facility] 22:15 -0400 Glucose [Mass/Vol] 101 High 65-99 mg/dL [facility] 09-23 22:15 -0400 (L) Fasting: <100 mg/dL, Non-Fasting: <200 mg/dL (ADA 2004) Potassium [Moles/Vol] 3.3 Low 3.4-5.3 mmol/L [facility] 09-23 22:15 -0400 Protein [Mass/Vol] 7.1 6.3-8.3 g/dL [facility] 09-23 22:15 -0400 Sodium [Moles/Vol] 138 136-145 mmol/L [facility] 09-23 22:15 -0400 Urea nitrogen [Mass/Vol] 15 8-21 mg/dL [facility] 09-23 22:15 -0400 GFR/1.73 sq M.predicted CKD-EPI (S/P/Bld) [Vol rate/Area] >90 >59 [facility] 09-23 22:15 -0400 (L) CKD-EPI (2020) in mL/min/1.73 sq meters. Globulin Calc (S) [Mass/Vol] 2.8 1.5-3.9 g/dL [facility] 09-23 22:15 -0400 Albumin/Globul in [Mass ratio] 1.5 [facility] 09-23 22:15 -0400 <tr><td>Albumin /Globulin Ratio</td><td>1 .5</td><td>1.0 - 3.0 Ratio</td><td>< /td><td> 024 10:15 PM EDT</td><td>[facility]</td><t d></td></tr> Anion gap (Bld) [Moles/Vol] 12 7 - 17 [facility] 09-23 22:15 -0400 <tr><td>Anion Gap</td><td>12< /td><td>7 - 17</td><td></td ><td>09/24/2023 10:15 PM EDT</td><td>[facility]</td><t d></td></tr> ALT [Catalytic activity/Vol] 15 U/L 10 - 50 U/L [facility] 09-23 22:15 -0400 Alanine Aminotrans (ALT) 15 10 - 50 U/L 09/24/2023 10:15 PM EDT [facility] Albumin [Mass/Vol] 4.3 g/dL 3.5 - 5.0 g/dL [facility] 09-23 22:15 -0400 Albumin 4.3 3.5 - 5.0 g/dL 09/24/2023 10:15 PM T [facility] ALP [Catalytic activity/Vol] 51 U/L 32 - 122 U/L [facility] 09-23 22:15 -0400 Alkaline Phosphatase 51 32 - 122 U/L 09/24/2023 10:15 PM T [facility] AST [Catalytic activity/Vol] 29 U/L 10 - 50 U/L [facility] 09-23 22:15 -0400 Aspartate Aminotrans (AST) 29 10 - 50 U/L 09/24/2023 10:15 PM T [facility] Bilirubin [Mass/Vol] 0.5 mg/dL 0.2 - 1.0 mg/dL [facility] 09-23 22:15 -0400 Bilirubin, Total 0.5 0.2 - 1.0 mg/dL 09/24/2023 10:15 PM T [facility] Calcium [Mass/Vol] 9.2 mg/dL 8.7 - 10.5 mg/dL [facility] 09-23 22:15 -0400 Calcium 9.2 8.7 - 10.5 mg/dL 09/24/2023 10:15 PM [facility] Chloride [Moles/Vol] 103 mmol/L 98 - 107 mmol/L [facility] 09-23 22:15 -0400 Chloride 103 98 - 107 mmol/L 09/24/2023 10:15 PM [facility] CO2 [Moles/Vol] 23 mmol/L 22 - 33 mmol/L [facility] 09-23 22:15 -0400 CO2 23 22 - 33 mmol/L 09/24/2023 10:15 PM [facility] Creatinine [Mass/Vol] 0.8 mg/dL 0.4 - 1.1 mg/dL [facility] 09-23 22:15 -0400 Creatinine 0.8 0.4 - 1.1 mg/dL 09/24/2023 10:15 PM [facility] Glucose [Mass/Vol] 101 mg/dL High 65 - 99 mg/dL [facility] 09-23 22:15 -0400 Glucose 101 (H) 65 - 99 mg/dL 09/24/2023 10:15 PM [facility] Comment on above: Fasting: <100 mg/dL, Non-Fasting: <200 m g/dL (ADA 2005) Potassium [Moles/Vol] 3.3 mmol/L Low 3.4 - 5.3 mmol/L [facility] 09-23 22:15 -0400 Potassium 3.3 (L) 3.4 - 5.3 mmol/L 09/24/2023 10:15 PM [facility] Protein [Mass/Vol] 7.1 g/dL 6.3 - 8.3 g/dL [facility] 09-23 22:15 -0400 Protein, Total 7.1 6.3 - 8.3 g/dL 09/24/2023 10:15 PM [facility] Sodium [Moles/Vol] 138 mmol/L 136 - 145 mmol/L [facility] 09-23 22:15 -0400 Sodium 138 136 - 145 mmol/L 09/24/2023 10:15 PM [facility] Urea nitrogen [Mass/Vol] 15 mg/dL 8 - 21 mg/dL [facility] 09-23 22:15 -0400 Blood Urea Nitrogen (BUN) 15 8 - 21 mg/dL 09/24/2023 10:15 PM T [facility] GFR/1.73 sq M.predicted CKD-EPI (S/P/Bld) [Vol rate/Area] <PINF >90 59 - PINF [facility] 09-23 22:15 -0400 eGFR >90 >59 09/24/2023 10:15 PM T [facility] Comment on above: CKD-EPI (2020) in mL/min/1.73 sq meters. Globulin Calc (S) [Mass/Vol] 2.8 g/dL 1.5 - 3.9 g/dL [facility] 09-23 22:15 -0400 Globulin 2.8 1.5 - 3.9 g/dL 09/24/2023 10:15 PM [facility] Creatine Kinase (CK)on 09-23 CK [Catalytic activity/Vol] 97 U/L 24 - 173 U/L [facility] 09-23 22:15 -0400 Creatine Kinase (CK) 97 24 - 173 U/L 09/24/2023 10:15 PM [facility] Emergency Department (DEEDS) variableson 09-24-2023 Interpretation and review of laboratory results Abnormal [facility] 09-23 22:37 -0400 Ethanol SerPl-mCncon 024 Ethanol [Mass/Vol] <11 <11 mg/dL [facility] 09-23 22:15 -0400 (L) * FOR MEDICAL PURPOSES ONLY * Ethanol, Bloodon 09-24-2023 Ethanol [Mass/Vol] <11 >NINF mg/dL NINF - 11 mg/dL [facility] 09-23 22:15 -0400 Ethanol, Quantitative, Blood <11 <11 mg/dL 09/24/2023 10:15 PM [facility] Comment on above: * FOR MEDICAL PURPOSES ONLY * High Sensitivity Troponin To n 09-24-2023 Troponin T.cardiac [Mass/Vol] <6 <15 ng/L [facility] 09-23 22:15 -0400 Delta NO PREVIOUS RESULT <3 [facility] 09-23 22:15 -0400 IONIZED CALCIUMon 09-24-2023 Calcium.ionize d [Mass/Vol] 1.10 Low 1.17-1.33 mmol/L [facility] 09-23 22:37 -0400 Lactate SerPl-sCncon 024 Lactate [Moles/Vol] 1.7 0.5-1.9 mmol/L [facility] 09-23 22:04 -0400 Lactic Acid, Plasmaon 2023 Lactate [Moles/Vol] 1.7 mmol/L 0.5 - 1.9 mmol/L [facility] 09-23 22:04 -0400 Lactic Acid 1.7 0.5 - 1.9 mmol/L 09/24/2023 10:04 PM [facility] Lipaseon 09-24-2023 Lipase [Catalytic activity/Vol] 26 U/L 13 - 60 U/L [facility] 09-23 22:15 -0400 Lipase 26 13 - 60 U/L 09/24/2023 10:15 PM [facility] Lipase [Catalytic activity/Vol] 26 13-60 U/L [facility] 09-23 22:15 -0400 Magnesiumon 09-24-2023 Magnesium [Mass/Vol] 1.8 mg/dL 1.6 - 2.7 mg/dL [facility] 09-23 22:15 -0400 Magnesium 1.8 1.6 - 2.7 mg/dL 09/24/2023 10:15 PM [facility] Magnesium SerPl-mCncon 09-23 Magnesium [Mass/Vol] 1.8 1.6-2.7 mg/dL [facility] 09-23 22:15 -0400 No Panel Informationon 09-23 [facility] 09-23 23:37 -0400 [facility] 09-23 22:37 -0400 POC Glucoseon 09-24-2023 Glucose [Mass/Vol] 87 mg/dL 65-99 mg/dL [facility] 09-23 21:24 -0400 POCT Glucose, Fingerstickon 09-24-2023 Glucose (Bld) [Mass/Vol] 87 mg/dL 65 - 99 mg/dL [facility] 09-23 21:24 -0400 POC Glucose 87 65 - 99 mg/dL 09/24/2023 9:24 PM EDT [facility] 09-23 21:24 -0400 PTon 09-24-2023 INR Coag (PPP) [Relative time] 1.0 [facility] 09-23 22:13 -0400 <tr><td>INR</td ><td><content>1 .0</content></t d><td></td><td> </td><td>2023 10:13 PM EDT</td><td>[facility]</td><t d></td></tr> Comment on above: INR Therapeutic Ranges: Standard dose an ticoagulant 2.0 to 3.0, High dose anticoagulant 2.5-3.5. PT Coag (PPP) [Time] 11.6 [facility] 09-23 22:13 -0400 <tr><td>Prothro mbin Time (PT)</td><td>11 .6</td><td>10.0 - 13.5 seconds</td><td ></td><td>09/23 10:13 PM EDT</td><td>[facility]</td><t d></td></tr> Anticoagulant NO ANTI COAGULANT MEDS [facility] 09-23 21:22 -0400 PTTon 09-24-2023 aPTT Coag (PPP) [Time] 25 [facility] 09-23 22:13 -0400 <tr><td>Partial Thromboplastin Time (PTT)</td><td>2 5</td><td>25 - 36 seconds</td><td ></td><td>09/23 10:13 PM EDT</td><td>[facility]</td><t d></td></tr> Phosphate SerPl-mCncon 09-23 Phosphate [Mass/Vol] 2.4 Low 2.7-4.5 mg/dL [facility] 09-23 22:15 -0400 Phosphoruson 09-24-2023 Phosphate [Mass/Vol] 2.4 mg/dL Low 2.7 - 4.5 mg/dL [facility] 09-23 22:15 -0400 Phosphorus 2.4 (L) 2.7 - 4.5 mg/dL 09/24/2023 10:15 PM EDT [facility] Protime-INRon 09-24-2023 Anticoagulant NO ANTI COAGULANT MEDS [facility] 09-23 22:13 -0400 Anticoagulant NO ANTI COAGULANT MEDS 09/24/2023 9:22 PM EDT Troponin T, High Sensitivity on 09-24-2023 Troponin T.cardiac [Mass/Vol] <6 >NINF ng/L NINF - 15 ng/L [facility] 09-23 22:15 -0400 High Sensitivity Troponin T <6 <15 ng/L 09/24/2023 10:15 PM EDT [facility] Delta (Change) NO PREVIOUS RESULT NINF - 3 [facility] 09-23 22:15 -0400 Delta (Change) NO PREVIOUS RESULT <3 09/24/2023 10:15 PM EDT [facility] Type and Screenon 09-24-2023 Blood group antibody screen Ql Negative [facility] 09-23 22:33 -0400 Antibody Screen NEGATIVE 09/24/2023 10:33 PM EDMT. [facility] Specimen Expiration 09/27/2023 [facility] 09-23 22:33 -0400 Specimen Expiration 09/27/2023 09/24/2023 10:33 PM EDT [facility] Blood Bank Comment Second Sample needed for Blood Transfusion [facility] 09-23 22:33 -0400 Blood Bank Comment Second Sample needed for Blood Transfusion 09/24/2023 10:33 PM EDT [facility] XR Chest 1 view-Portableon 0 09-24-2023 No acute pulmonary disease. Sepideh Palacio MD Diagnostic Diver Tender I personally reviewed the images and the Resident's preliminary report and AGREE with the report as it is now presented ([email or web address]). [facility] 09-23 22:55 -0400 No acute pulmonary disease. Sepideh Palacio MD Diagnostic Diver Tender I personally reviewed the images and the Resident's preliminary report and AGREE with the report as it is now presented ([email or web address]). EXAMINATION: XR CHEST CLINICAL INFORMATION: Status post fall 30ft COMPARISON: None available. TECHNIQUE: Supine view of the chest was obtained. FINDINGS: Lungs are adequately expanded. No focal consolidation. No pleural effusion or pneumothorax. Cardiomediastin al silhouette is within normal limits. No acute osseous findings. [facility] 09-23 22:55 -0400 EXAMINATION: XR CHEST CLINICAL INFORMATION: Status post fall 30ft COMPARISON: None available. TECHNIQUE: Supine view of the chest was obtained. FINDINGS: Lungs are adequately expanded. No focal consolidation. No pleural effusion or pneumothorax. Cardiomediastin al silhouette is within normal limits. No acute osseous findings. Obed Carrizales, - 09/24/2023 EXAMINATION: XR CHEST CLINICAL INFORMATION: Status post fall 30ft COMPARISON: None available. TECHNIQUE: Supine view of the chest was obtained. FINDINGS: Lungs are adequately expanded. No focal consolidation. No pleural effusion or pneumothorax. Cardiomediastin al silhouette is within normal limits. No acute osseous findings. IMPRESSION: No acute pulmonary disease. Sepideh Palacio MD Diagnostic Diver Tender I personally reviewed the images and the Resident's preliminary report and AGREE with the report as it is now presented ([email or web address]). [facility] 09-23 22:55 -0400 Obed Carrizales, - 09/24/2023 EXAMINATION: XR CHEST CLINICAL INFORMATION: Status post fall 30ft COMPARISON: None available. TECHNIQUE: Supine view of the chest was obtained. FINDINGS: Lungs are adequately expanded. No focal consolidation. No pleural effusion or pneumothorax. Cardiomediastin al silhouette is within normal limits. No acute osseous findings. IMPRESSION: No acute pulmonary disease. Sepideh Palacio MD Diagnostic Diver Tender I personally reviewed the images and the Resident's preliminary report and AGREE with the report as it is now presented ([email or web address]). XR Elbow 2 views-Lefton 06-0 1. No acute fracture or dislocation. 2. Mild soft tissue swelling around the ankle. Sepideh Palacio MD Diagnostic Diver Tender I personally reviewed the images and the Resident's preliminary report and AGREE with the report as it is now presented ([email or web address]). [facility] 09-23 23:37 -0400 1. No acute fracture or dislocation. 2. Mild soft tissue swelling around the ankle. Sepideh Palacio MD Diagnostic Diver Tender I personally reviewed the images and the Resident's preliminary report and AGREE with the report as it is now presented ([email or web address]). EXAMINATION: XR ELBOW, LEFT CLINICAL INFORMATION: Status post 30 foot fall, left elbow pain COMPARISON: None available. TECHNIQUE: AP, lateral, and oblique views of the left elbow. FINDINGS: No acute fracture or joint effusion. Mild soft tissue swelling around the elbow. Alignment is anatomic. Radiocapitellar alignment is maintained. Joint spaces are maintained. [facility] 09-23 23:37 -0400 EXAMINATION: XR ELBOW, LEFT CLINICAL INFORMATION: Status post 30 foot fall, left elbow pain COMPARISON: None available. TECHNIQUE: AP, lateral, and oblique views of the left elbow. FINDINGS: No acute fracture or joint effusion. Mild soft tissue swelling around the elbow. Alignment is anatomic. Radiocapitellar alignment is maintained. Joint spaces are maintained. Basil Pettit MD - 09/24/2023 EXAMINATION: XR ELBOW, LEFT CLINICAL INFORMATION: Status post 30 foot fall, left elbow pain COMPARISON: None available. TECHNIQUE: AP, lateral, and oblique views of the left elbow. FINDINGS: No acute fracture or joint effusion. Mild soft tissue swelling around the elbow. Alignment is anatomic. Radiocapitellar alignment is maintained. Joint spaces are maintained. IMPRESSION: 1. No acute fracture or dislocation. 2. Mild soft tissue swelling around the ankle. Sepideh Palacio MD Diagnostic Diver Tender I personally reviewed the images and the Resident's preliminary report and AGREE with the report as it is now presented ([email or web address]). [facility] 09-23 23:37 -0400 Basil Pettit MD - 09/24/2023 EXAMINATION: XR ELBOW, LEFT CLINICAL INFORMATION: Status post 30 foot fall, left elbow pain COMPARISON: None available. TECHNIQUE: AP, lateral, and oblique views of the left elbow. FINDINGS: No acute fracture or joint effusion. Mild soft tissue swelling around the elbow. Alignment is anatomic. Radiocapitellar alignment is maintained. Joint spaces are maintained. IMPRESSION: 1. No acute fracture or dislocation. 2. Mild soft tissue swelling around the ankle. Sepideh Palacio MD Diagnostic Diver Tender I personally reviewed the images and the Resident's preliminary report and AGREE with the report as it is now presented ([email or web address]). XR Pelvis 1 or 2 views-[facility] 09-24-2023 No acute fracture. Sepideh Palacio MD Diagnostic Diver Tender I personally reviewed the images and the Resident's preliminary report and AGREE with the report as it is now presented ([email or web address]). [facility] 09-23 22:57 -0400 No acute fracture. Sepideh Palacio MD Diagnostic Diver Tender I personally reviewed the images and the Resident's preliminary report and AGREE with the report as it is now presented ([email or web address]). EXAMINATION: XR PELVIS CLINICAL INFORMATION: Status post fall COMPARISON: None available. TECHNIQUE: AP view of the pelvis. FINDINGS: No fracture. Hip joint spaces are maintained. Alignment is anatomic. Sacroiliac joints and pubic symphysis are normal. No abnormal soft tissue calcifications. Moderate colonic stool burden. IUD projects over the pelvis. [facility] 09-23 22:57 -0400 EXAMINATION: XR PELVIS CLINICAL INFORMATION: Status post fall COMPARISON: None available. TECHNIQUE: AP view of the pelvis. FINDINGS: No fracture. Hip joint spaces are maintained. Alignment is anatomic. Sacroiliac joints and pubic symphysis are normal. No abnormal soft tissue calcifications. Moderate colonic stool burden. IUD projects over the pelvis. Obed Carrizales DO - 09/24/2023 EXAMINATION: XR PELVIS CLINICAL INFORMATION: Status post fall COMPARISON: None available. TECHNIQUE: AP view of the pelvis. FINDINGS: No fracture. Hip joint spaces are maintained. Alignment is anatomic. Sacroiliac joints and pubic symphysis are normal. No abnormal soft tissue calcifications. Moderate colonic stool burden. IUD projects over the pelvis. IMPRESSION: No acute fracture. Sepideh Palacio MD Diagnostic Diver Tender I personally reviewed the images and the Resident's preliminary report and AGREE with the report as it is now presented ([email or web address]). [facility] 09-23 22:57 -0400 Obed Carrizales DO - 09/24/2023 EXAMINATION: XR PELVIS CLINICAL INFORMATION: Status post fall COMPARISON: None available. TECHNIQUE: AP view of the pelvis. FINDINGS: No fracture. Hip joint spaces are maintained. Alignment is anatomic. Sacroiliac joints and pubic symphysis are normal. No abnormal soft tissue calcifications. Moderate colonic stool burden. IUD projects over the pelvis. IMPRESSION: No acute fracture. Sepideh Palacio MD Diagnostic Diver Tender I personally reviewed the images and the Resident's preliminary report and AGREE with the report as it is now presented (RADPAL1). No Panel Information (PVISIT) : [id number] [facility] APPT STATUS (PVISIT) : [id number]~(A PPT_STATUS) APPT STATUS: 1 [facility] APPT STATUS (PVISIT) : [id number]~(A PPT_STATUS) APPT STATUS: 6 [facility] Social History Date Type Detail Facility Start: 09-24-2023 Gender identity Identifies as female gender (finding) [facility] Start: 09-24-2023 Sexual orientation Heterosexual (fin ding) [facility] Start: 1995 Sex Assigned At Female H [facility] Tobacco smoking stat [facility] Tobacco smoking consumption unknown [facility] Vital Signs Date Time Vital Sign Value Performing Clinician Facility 09-25-2023 00:06-0400 BP (Blood pressure) 112/60mm[Hg] Juanis Marcum MD Work Phone: [facility] 09-25-2023 00:06-0400 Heart rate 90 /min Juanis Marcum MD Work Phone: [facility] 09-25-2023 00:06-0400 Respiratory rate 16 /min Juanis Marcum MD Work Phone: [facility] 09-25-2023 00:06-0400 SaO2% (BldA) [Mass fraction] 98 % Juanis Marcum MD Work Phone: [facility] 09-24-2023 22:45-0400 Body temperature 97.59 [degF] Juanis Marcum MD Work Phone: [facility] Clinical Notes 09-24-2023 to 09-25-2023 Valarie Longoria RN - 09/25/2023 1:47 AM Mary Anne Longoria RN - 09/25/2023 1:47 AM Mary Anne Longoria RN - 09/25/2023 12:07 AM Mary Anne Longoria RN - 09/24/2023 11:20 PM EDTDischarge Instructions Note Date & Type Note Facility 09-25-2023 Security Compliance Engineer Authentication Interface Message Text History Chief Complaint Patient presents with ? Fall I personally saw the patient and performed a substantive portion of the visit including all aspects of the medical decision-making. I reviewed the AP's or resident's findings, supervised the management of the patient, made/approved the management plan and take responsibility for the patient management. Further, I agree with the controlled substance prescriptions(s) and/or order(s) as written by the AP, if any. My note reflects my personal findings on my history and exam. HPI: I reviewed any nurses notes, vital signs, home medication list, other history or pertinent diagnostic tests available Associated symptoms and Additional history: 28 year old female presents as a full trauma after a 30 foot fall while rock climbing. She was wearing a helmet and landed on her left side with no loss of consciousness. She arrived by POV and complains of pain in her left elbow and left hip. Additional HPI No past medical history on file. No past surgical history on file. No family history on file. Review of Systems All other systems negative x 10 except where noted in HPI or above Physical Exam BP 112/60 (BP Location: Left arm, Patient Position: Lying) Pulse 90 Temp 97.6 ?F (36.4 ?C) (Tympanic) Resp 16 SpO2 98% Physical Exam Vitals and nursing note reviewed. Constitutional: General: She is not in acute distress. Appearance: Normal appearance. HENT: Head: Normocephalic and atraumatic. Cardiovascular: Rate and Rhythm: Normal rate and regular rhythm. Pulses: Normal pulses. Pulmonary: Effort: Pulmonary effort is normal. Breath sounds: Normal breath sounds. Chest: Chest wall: No tenderness. Abdominal: Palpations: Abdomen is soft. Tenderness: There is no abdominal tenderness. Musculoskeletal: Left elbow: No deformity. Normal range of motion. Tenderness present. Cervical back: No spinous process tenderness. Thoracic back: Normal. Lumbar back: Normal. Left hip: Tenderness present. No deformity. Skin: Findings: Laceration (left elbow) present. Neurological: General: No focal deficit present. Mental Status: She is alert and oriented to person, place, and time. GCS: GCS eye subscore is 4. GCS verbal subscore is 5. GCS motor subscore is 6. ED Course Final diagnoses: Injury while rock climbing MDM: Number and Complexity of Problems Addressed MDM Detail: 30 foot fall, full trauma based on mechanism, trauma team present in Red Pod. Sparks CT scan ordered due to mechanism and was negative. X-rays also negative for fractures. Left elbow laceration to be repaired by trauma resident. Will ambulate with plan for discharge. Amount and Complexity of Data Independent Interpretation of Diagnostic study by ED clinician: Chest and pelvis x-rays unremarkable Discussion with Other Healthcare Provider: Trauma surgery Prescription Medication Management: Administration of Prescription Strength Medication Risk of Complications and/or Morbidity or Mortality of Patient Management Critical Care XR Elbow 2 views-Left CT Head w/o contrast CT Cervical spine w/o contrast CT Chest Abdomen Pelvis with IV Contrast CT Reconstructed Data Without IV Contrast - Thoracic / Lumbar Spine XR Pelvis 1 or 2 views-Portable XR Chest 1 view-Portable ED Course as of 09/25/23 1108 SatSep 25, 2023 0011 28-year-old female, she fell estimated 30 feet while rockclimbing, sparks scan negative, left elbow laceration being sutured by trauma then ambulation trial and discharge. [WK] 0150 Patient laceration repaired by trauma surgery. She is successfully passed ambulation trial. She feels tight in her feet. She was able to tolerate p.o. here in the emergency room. She is stable for discharge. Work note to be provided. [WK] ED Course User Index [WK] DO Juanis Lozano MD 09/25/23 1114 [facility] 09-25-2023 Security Compliance Engineer Authentication Interface Message Text Received patient in signout from evening resident. ED Course as of 09/25/23 1625 SatSep 25, 2023 0011 28-year-old female, she fell estimated 30 feet while rockclimbing, sparks scan negative, left elbow laceration being sutured by trauma then ambulation trial and discharge. [WK] 0150 Patient laceration repaired by trauma surgery. She successfully passed ambulation trial. She feels steady on her feet. She was able to tolerate p.o. here in the emergency room. She is stable for discharge. Work note to be provided. [WK] ED Course User Index [WK] Iris Ortiz DO [facility] 09-25-2023 Emergency department Note Pt ambulated with steady gate, NAD on RA, pt assisted back into bed and resting comfortably. Valarie Longoria RN 09/25/23 0147 [facility] Work Phone: 09-25-2023 Security Compliance Engineer Authentication Interface Message Text Pt ambulated with steady gate, NAD on RA, pt assisted back into bed and resting comfortably. Valarie Longoria RN 09/25/23 0147 [facility] 09-25-2023 Emergency department Note Pt ambulated with steady gate, NAD on RA, pt assisted back into bed and resting comfortably. Valarie Longoria RN 09/25/23 0147 Provider at bedside repairing elbow lac, pt NAD on RA, RR even and unlabored. VSS. C collar removed by , pt rpovided snack and water, fluids started per JUN. Valarie Longoria RN 09/25/23 0008 Pt resting in stretcher, NAD, RR even and unlabored on RA. Pt endorsing pain to left lower back and left elbow. C-collar remains in place, waiting for final CT reads. Pt is A&Ox4, speaking in full sentences, calm and cooperative. Valarie Longoria RN 09/24/232321 Report given to LIANA Sheppard and care transferred at this time. Cameron Davis RN 09/24/232242 Pt resting on stretcher endorsing pearson/back pain. Pt RR equal and unlabored on RA, NS on monitor. Pt ok to move out of red per MD chartoff. Plan for transfer to [facility] [place] [facility] Cameron Davis RN 09/24/232227 documented in this encounter [facility] 09-25-2023 Procedure note Procedure: Laceration repair The laceration was simple crescent shaped and 2 cm in length. Location: Left elbow Exam: The laceration involved the subcutaneous tissue. The laceration is curved. The laceration was contaminated, did not have a foreign body and did not have tissue loss. The site was prepped with Betadine. The area was cleansed and irrigated. Anesthesia: a local anesthetic was administered and injected site with 3ml of Lidocaine 1% without Epinephrine Closure: The cutaneous layer was closed with 4 simple interrupted sutures using 4-0 Ethilon. Dressing: A sterile dressing was applied and antibiotic ointment was applied Patient Status: The patient tolerated procedure well and there were no complications Pauline Harding PA-C 09/25/23 12:44 AM [facility] 09-25-2023 Security Compliance Engineer Authentication Interface Message Text Procedure: Laceration repair The laceration was simple crescent shaped and 2 cm in length. Location: Left elbow Exam: The laceration involved the subcutaneous tissue. The laceration is curved. The laceration was contaminated, did not have a foreign body and did not have tissue loss. The site was prepped with Betadine. The area was cleansed and irrigated. Anesthesia: a local anesthetic was administered and injected site with 3ml of Lidocaine 1% without Epinephrine Closure: The cutaneous layer was closed with 4 simple interrupted sutures using 4-0 Ethilon. Dressing: A sterile dressing was applied and antibiotic ointment was applied Patient Status: The patient tolerated procedure well and there were no complications Pauline Harding PA-C 09/25/23 12:44 AM [facility] 09-25-2023 Procedure note Procedure: Laceration repair The laceration was simple crescent shaped and 2 cm in length. Location: Left elbow Exam: The laceration involved the subcutaneous tissue. The laceration is curved. The laceration was contaminated, did not have a foreign body and did not have tissue loss. The site was prepped with Betadine. The area was cleansed and irrigated. Anesthesia: a local anesthetic was administered and injected site with 3ml of Lidocaine 1% without Epinephrine Closure: The cutaneous layer was closed with 4 simple interrupted sutures using 4-0 Ethilon. Dressing: A sterile dressing was applied and antibiotic ointment was applied Patient Status: The patient tolerated procedure well and there were no complications Pauline Harding PA-C 09/25/23 12:44 AM documented in this encounter [facility] 09-25-2023 Security Compliance Engineer Authentication Interface Message Text TRAUMA SURGERY CONSULT Patient Name: Jeremy Fraser Patient Age: 28 y.o. Patient Gender: female Patient : 1995 Requesting Physician: Dr. Marcum Consulting Trauma Physician: Dr. Hatch Reason for Consult: Full Trauma Arrival Date:09/24/2023 9:13 PM Evaluation date & time: 09/25/2023 9:07 pm CHIEF COMPLAINT: Trauma HISTORY OF THE PRESENT ILLNESS: Patient and EMS 28-year-old with no significant past medical history presents to the emergency department as a full trauma after fall during rockclimbing. According to EMS and patient she was the helmeted climber going 20-30 feet rockclimbing when she slipped and fell hitting her left elbow, left side and head onto the ground. Patient denies LOC. She reports significant left-sided hip and elbow pain. With EMS patient was he medically stable, GCS 15. No medications given prior to arrival. ROS: 10 point review of systems completed. All others negative except as above. PAST MEDICAL HISTORY: No past medical history on file. SURGICAL HISTORY: No past surgical history on file. FAMILY HISTORY: No family history on file. Denies family history of bleeding disorder. SOCIAL HISTORY: denies tobacco, Socially drinks EtOH, uses Occasional marijuana drugs Social History Socioeconomic History ? Marital status: Single Spouse name: Not on file ? Number of children: Not on file ? Years of education: Not on file ? Highest education level: Not on file Occupational History ? Not on file Tobacco Use ? Smoking status: Not on file ? Smokeless tobacco: Not on file Substance and Sexual Activity ? Alcohol use: Not on file ? Drug use: Not on file ? Sexual activity: Not on file Other Topics Concern ? Not on file Social History Narrative ? Not on file Social Determinants of Health Financial Resource Strain: Not on file Food Insecurity: Not on file Transportation Needs: Not on file Physical Activity: Not on file Stress: Not on file Social Connections: Not on file Housing Stability: Not on file MEDICATIONS: Current Facility-Administered Medications: ? sodium chloride 0.9 % (NS) bolus, 1,000 mL, Intravenous, Once, Tatianna Valentino MD, Last Rate: 1,000 mL/hr at 09/25/23 0004, 1,000 mL at 09/25/23 0004 No current outpatient medications on file. Tetanus: Unknown - ordered in ED ALLERGIES: No Known Allergies VITAL SIGNS: 90,Resp:16,BP:112/60,SpO2:98 %,Weight: PHYSICAL EXAM: (Physical exam performed by Mely Sy DO) Neuro: alert & oriented x3, CN II-XII grossly intact, no focal neuro deficit Head: normocephalic, atraumatic Face: No injury Eyes: Pupils: Right 3mm brisk Left 3mm brisk Extraocular Muscles: full and intact Ears: No injury Nose: No injury Mouth: Teeth: Intact Tongue: midline, atraumatic Neck: Tenderness: Non-tender Crepitus: No Trachea: midline Contusions/Abrasions: No Wounds: No Back: Tenderness: Tender lumbar/sacral spine Contusions/Abrasions: No Step offs: No Wounds: No Chest: Crepitus: No Contusions/Abrasions: No Wounds: No Tenderness: Non-tender Resp: Breath Sounds: clear to auscultation, no wheezes, rales, or rhonchi CV: Heart: RRR Pulses: Radial: present 2+ Pedal: present 2+ Femoral: present 2+ GI: Abdomen soft Bowel sounds: present Contusion/Abrasions: No Wounds: No Distention: No Tenderness: Non-tender Pelvis: stable, tender left-sided pelvis : Normal general genitalia Rectal:not tested Extremities: Moves All Extremities: Yes RUE: no injury seen Motor: 5/5 - against full resistance Sensory: intact to light touch LUE: laceration to left elbow, swelling and 6/10 pain Motor: 5/5 - against full resistance Sensory: intact to light touch RLE: contusion old ecchymosis to the right tibia motor: 5/5 - against full resistance Sensory: intact to light touch LLE: no injury seen Motor: 5/5 - against full resistance Sensory: intact to light touch Last documented RAP Score: DIAGNOSTIC DATA: XR Elbow 2 views-Left Final Result 1. No acute fracture or dislocation. 2. Mild soft tissue swelling around the ankle. Sepideh Palacio MD Diagnostic Diver Tender I personally reviewed the images and the Resident's preliminary report and AGREE with the report as it is now presented (RADPAL1). CT Head w/o contrast Final Result No acute intracranial pathology. No acute fracture or malalignment in the cervical spine. Jan Schultz MD Diagnostic Diver Tender I personally reviewed the images and the Resident's preliminary report and AGREE with the report as it is now presented (RADPAL1). CT Cervical spine w/o contrast Final Result No acute intracranial pathology. No acute fracture or malalignment in the cervical spine. Jan Schultz MD Diagnostic Diver Tender I personally reviewed the images and the Resident's preliminary report and AGREE with the report as it is now presented ([email or web address]). CT Chest Abdomen Pelvis with IV Contrast Final Result 1. No acute traumatic injuries are identified in the chest, abdomen, and pelvis. 2. No fracture or malalignment in the thoracolumbar spine. 3. Hyperattenuating soft tissue prominence in the anterior mediastinum. 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 Further evaluation with dedicated nonemergent MRI can be performed if clinically indicated. Sepideh Palaico MD Diagnostic Diver Tender I personally reviewed the images and the Resident's preliminary report and AGREE with the report as it is now presented ([email or web address]). CT Reconstructed Data Without IV Contrast - Thoracic / Lumbar Spine Final Result 1. No acute traumatic injuries are identified in the chest, abdomen, and pelvis. 2. No fracture or malalignment in the thoracolumbar spine. 3. Hyperattenuating soft tissue prominence in the anterior mediastinum. 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 Further evaluation with dedicated nonemergent MRI can be performed if clinically indicated. Sepideh Palacio MD Diagnostic Diver Tender I personally reviewed the images and the Resident's preliminary report and AGREE with the report as it is now presented ([email or web address]). XR Pelvis 1 or 2 views-Portable Final Result No acute fracture. Sepideh Palacio MD Diagnostic Diver Tender I personally reviewed the images and the Resident's preliminary report and AGREE with the report as it is now presented ([email or web address]). XR Chest 1 view-Portable Final Result No acute pulmonary disease. Sepideh Palacio MD Diagnostic Diver Tender I personally reviewed the images and the Resident's preliminary report and AGREE with the report as it is now presented ([email or web address]). Results for orders placed or performed during the hospital encounter of 09/24/23 Complete Blood Count w/ Differential Result Value Ref Range White Blood Cell Count 11.3 (H) 4.0 - 11.0 Thou/uL Platelet Count 288 150 - 450 Thou/uL Hemoglobin 12.3 11.7 - 15.7 g/dL Hematocrit 36.6 35.0 - 47.0 % Red Blood Cell Count 3.94 (L) 4.00 - 5.40 Mil/uL MCV 93 80 - 100 fL MCH 31.2 26.0 - 34.0 pg MCHC 33.6 30.0 - 36.0 g/dL RDW 13.1 11.5 - 14.5 % MPV 10.3 7.5 - 12.5 fL Neutrophils Auto 71.4 % Immature Granulocytes 0.7 % Lymphocytes Auto 20.3 % Monocytes Auto 5.6 % Eosinophils Auto 1.5 % Basophils Auto 0.5 % Abs Neutrophils Auto 8.09 (H) 2.00 - 7.50 Thou/uL Abs Immature Granulocytes 0.08 0.00 - 0.10 Thou/uL Abs Lymphocytes Auto 2.30 1.50 - 4.50 Thou/uL Abs Monocytes Auto 0.63 0.20 - 1.50 Thou/uL Abs Eosinophils Auto 0.17 0.00 - 0.70 Thou/uL Abs Basophils Auto 0.06 0.00 - 0.20 Thou/uL Comprehensive Metabolic Panel Result Value Ref Range Glucose 101 (H) 65 - 99 mg/dL Blood Urea Nitrogen (BUN) 15 8 - 21 mg/dL Creatinine 0.8 0.4 - 1.1 mg/dL eGFR >90 >59 Sodium 138 136 - 145 mmol/L Potassium 3.3 (L) 3.4 - 5.3 mmol/L Chloride 103 98 - 107 mmol/L CO2 23 22 - 33 mmol/L Calcium 9.2 8.7 - 10.5 mg/dL Alkaline Phosphatase 51 32 - 122 U/L Aspartate Aminotrans (AST) 29 10 - 50 U/L Alanine Aminotrans (ALT) 15 10 - 50 U/L Bilirubin, Total 0.5 0.2 - 1.0 mg/dL Protein, Total 7.1 6.3 - 8.3 g/dL Albumin 4.3 3.5 - 5.0 g/dL BUN/Creatinine Ratio 19 10.0 - 25.0 Ratio Globulin 2.8 1.5 - 3.9 g/dL Albumin/Globulin Ratio 1.5 1.0 - 3.0 Ratio Anion Gap 12 7 - 17 Lipase Result Value Ref Range Lipase 26 13 - 60 U/L Amylase Result Value Ref Range Amylase 66 28 - 100 U/L Calcium, Ionized Result Value Ref Range Calcium, Ionized 1.10 (L) 1.17 - 1.33 mmol/L Magnesium Result Value Ref Range Magnesium 1.8 1.6 - 2.7 mg/dL Phosphorus Result Value Ref Range Phosphorus 2.4 (L) 2.7 - 4.5 mg/dL Creatine Kinase (CK) Result Value Ref Range Creatine Kinase (CK) 97 24 - 173 U/L Lactic Acid, Plasma Result Value Ref Range Lactic Acid 1.7 0.5 - 1.9 mmol/L Protime-INR Result Value Ref Range Anticoagulant NO ANTI COAGULANT MEDS Prothrombin Time (PT) 11.6 10.0 - 13.5 seconds INR 1.0 Partial Thromboplastin Time (PTT) Result Value Ref Range Anticoagulant NO ANTI COAGULANT MEDS Partial Thromboplastin Time (PTT) 25 25 - 36 seconds Ethanol, Blood Result Value Ref Range Ethanol, Quantitative, Blood Troponin T, High Sensitivity Result Value Ref Range High Sensitivity Troponin T Delta (Change) NO PREVIOUS RESULT POCT Glucose, Fingerstick Result Value Ref Range POC Glucose 87 65 - 99 mg/dL Type and Screen Result Value Ref Range ABO/Rh O POSITIVE Antibody Screen NEGATIVE Specimen Expiration 09/27/2023 Blood Bank Comment Second Sample needed for Blood Transfusion ABO Confirmation Result Value Ref Range ABO/Rh O POSITIVE I have reviewed the patient's labs, medications and imaging. ASSESSMENT & PLAN: This is a 28 y.o.female with no significant past medical history presents to the emergency department as a full trauma after fall during rock-climbing from 20-30 feet with headstrike (not on anticoagulation) and no LOC. Upon presentation to the ED patient was ambulatory with assistance, hemodynamically stable with blood pressure 127/81, heart rate 83 bpm, O2 saturation 100% on room air with GCS 15. Patient complained of left elbow, left hip pain although pelvis is stable. Patient was found to have laceration of the left elbow and Ancef/Tdap were given. CT sparks scan negative for acute traumatic injuries. Cervical collar cleared clinically. Concussion -symptomatic care -zofran prn nausea -encourage fluids -avoid excessive screen time/bright lights -Tylenol/Motrin prn headache Laceration to the left elbow~2cm -Tdap/Ancef given -xray negative for acute fracture -washed out and repaired with four, 4-0 ethilon sutures -suture removal in 10 days -bacitracin daily -avoid tub baths or swimming -okay to shower daily Incidental Findings: Hyperattenuating soft tissue prominence in the anterior mediastinum. 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 Further evaluation with dedicated nonemergent MRI can be performed if clinically Indicated -patient notified of above findings -recommend follow up with PCP DISPOSITION: Per ED Marry Padron, JULIO 09/25/2023 12:39 AM [facility] 09-25-2023 Security Compliance Engineer Authentication Interface Message Text Attestation signed by Leonides Hatch MD at 09/25/2023 6:58 AM Teaching/Supervising Physician Attestation I evaluated and examined the patient in conjunction with the advanced practice provider. I reviewed the findings and assessment as outlined below. I performed a substantive amount of the visit (greater than 50%) including all aspects of medical decision making. I have reviewed the LAURA note below and agree with the following addendums and exceptions. The history is relevant [id number] female presenting as a full trauma status post fall from approximately 20 to 30 feet while rockclimbing, denies LOC; my examination shows a hemodynamically stable female with no motor or sensory loss complaining of left-sided pain, with small laceration to the left elbow; The labs and radiology demonstrate no major traumatic injuries and my assessment and plan include : Traumatic injuries identified. Patient disposition per ED. eLonides Hatch MD Attending Surgeon Acute Care Surgery (Trauma, Critical Care and Emergency Surgery) 09/25/2023 6:56 AM TRAUMA SURGERY CONSULT Patient Name: Jeremy Fraser Patient Age: 28 y.o. Patient Gender: female Patient : 1995 Requesting Physician: Dr. Marcum Consulting Trauma Physician: Dr. Hatch Reason for Consult: Full Trauma Arrival Date:09/24/2023 9:13 PM Evaluation date & time: 09/25/2023 9:07 pm CHIEF COMPLAINT: Trauma HISTORY OF THE PRESENT ILLNESS: Patient and EMS 28-year-old with no significant past medical history presents to the emergency department as a full trauma after fall during rockclimbing. According to EMS and patient she was the helmeted climber going 20-30 feet rockclimbing when she slipped and fell hitting her left elbow, left side and head onto the ground. Patient denies LOC. She reports significant left-sided hip and elbow pain. With EMS patient was he medically stable, GCS 15. No medications given prior to arrival. ROS: 10 point review of systems completed. All others negative except as above. PAST MEDICAL HISTORY: No past medical history on file. SURGICAL HISTORY: No past surgical history on file. FAMILY HISTORY: No family history on file. Denies family history of bleeding disorder. SOCIAL HISTORY: denies tobacco, Socially drinks EtOH, uses Occasional marijuana drugs Social History Socioeconomic History ? Marital status: Single Spouse name: Not on file ? Number of children: Not on file ? Years of education: Not on file ? Highest education level: Not on file Occupational History ? Not on file Tobacco Use ? Smoking status: Not on file ? Smokeless tobacco: Not on file Substance and Sexual Activity ? Alcohol use: Not on file ? Drug use: Not on file ? Sexual activity: Not on file Other Topics Concern ? Not on file Social History Narrative ? Not on file Social Determinants of Health Financial Resource Strain: Not on file Food Insecurity: Not on file Transportation Needs: Not on file Physical Activity: Not on file Stress: Not on file Social Connections: Not on file Housing Stability: Not on file MEDICATIONS: Current Facility-Administered Medications: ? sodium chloride 0.9 % (NS) bolus, 1,000 mL, Intravenous, Once, Tatianna Valentino MD, Last Rate: 1,000 mL/hr at 09/25/23 0004, 1,000 mL at 09/25/23 0004 No current outpatient medications on file. Tetanus: Unknown - ordered in ED ALLERGIES: No Known Allergies VITAL SIGNS: 90,Resp:16,BP:112/60,SpO2:98 %,Weight: PHYSICAL EXAM: (Physical exam performed by Mely Sy DO) Neuro: alert & oriented x3, CN II-XII grossly intact, no focal neuro deficit Head: normocephalic, atraumatic Face: No injury Eyes: Pupils: Right 3mm brisk Left 3mm brisk Extraocular Muscles: full and intact Ears: No injury Nose: No injury Mouth: Teeth: Intact Tongue: midline, atraumatic Neck: Tenderness: Non-tender Crepitus: No Trachea: midline Contusions/Abrasions: No Wounds: No Back: Tenderness: Tender lumbar/sacral spine Contusions/Abrasions: No Step offs: No Wounds: No Chest: Crepitus: No Contusions/Abrasions: No Wounds: No Tenderness: Non-tender Resp: Breath Sounds: clear to auscultation, no wheezes, rales, or rhonchi CV: Heart: RRR Pulses: Radial: present 2+ Pedal: present 2+ Femoral: present 2+ GI: Abdomen soft Bowel sounds: present Contusion/Abrasions: No Wounds: No Distention: No Tenderness: Non-tender Pelvis: stable, tender left-sided pelvis : Normal general genitalia Rectal:not tested Extremities: Moves All Extremities: Yes RUE: no injury seen Motor: 5/5 - against full resistance Sensory: intact to light touch LUE: laceration to left elbow, swelling and 6/10 pain Motor: 5/5 - against full resistance Sensory: intact to light touch RLE: contusion old ecchymosis to the right tibia motor: 5/5 - against full resistance Sensory: intact to light touch LLE: no injury seen Motor: 5/5 - against full resistance Sensory: intact to light touch Last documented RAP Score: DIAGNOSTIC DATA: XR Elbow 2 views-Left Final Result 1. No acute fracture or dislocation. 2. Mild soft tissue swelling around the ankle. Sepideh Palacio MD Diagnostic Diver Tender I personally reviewed the images and the Resident's preliminary report and AGREE with the report as it is now presented ([email or web address]). CT Head w/o contrast Final Result No acute intracranial pathology. No acute fracture or malalignment in the cervical spine. Jan Schultz MD Diagnostic Diver Tender I personally reviewed the images and the Resident's preliminary report and AGREE with the report as it is now presented ([email or web address]). CT Cervical spine w/o contrast Final Result No acute intracranial pathology. No acute fracture or malalignment in the cervical spine. Jan Schultz MD Diagnostic Diver Tender I personally reviewed the images and the Resident's preliminary report and AGREE with the report as it is now presented ([email or web address]). CT Chest Abdomen Pelvis with IV Contrast Final Result 1. No acute traumatic injuries are identified in the chest, abdomen, and pelvis. 2. No fracture or malalignment in the thoracolumbar spine. 3. Hyperattenuating soft tissue prominence in the anterior mediastinum. 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 Further evaluation with dedicated nonemergent MRI can be performed if clinically indicated. Sepideh Palacio MD Diagnostic Diver Tender I personally reviewed the images and the Resident's preliminary report and AGREE with the report as it is now presented ([email or web address]). CT Reconstructed Data Without IV Contrast - Thoracic / Lumbar Spine Final Result 1. No acute traumatic injuries are identified in the chest, abdomen, and pelvis. 2. No fracture or malalignment in the thoracolumbar spine. 3. Hyperattenuating soft tissue prominence in the anterior mediastinum. 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 Further evaluation with dedicated nonemergent MRI can be performed if clinically indicated. Sepideh Palacio MD Diagnostic Diver Tender I personally reviewed the images and the Resident's preliminary report and AGREE with the report as it is now presented ([email or web address]). XR Pelvis 1 or 2 views-Portable Final Result No acute fracture. Sepideh Palacio MD Diagnostic Diver Tender I personally reviewed the images and the Resident's preliminary report and AGREE with the report as it is now presented ([email or web address]). XR Chest 1 view-Portable Final Result No acute pulmonary disease. Sepideh Palacio MD Diagnostic Diver Tender I personally reviewed the images and the Resident's preliminary report and AGREE with the report as it is now presented ([email or web address]). Results for orders placed or performed during the hospital encounter of 09/24/23 Complete Blood Count w/ Differential Result Value Ref Range White Blood Cell Count 11.3 (H) 4.0 - 11.0 Thou/uL Platelet Count 288 150 - 450 Thou/uL Hemoglobin 12.3 11.7 - 15.7 g/dL Hematocrit 36.6 35.0 - 47.0 % Red Blood Cell Count 3.94 (L) 4.00 - 5.40 Mil/uL MCV 93 80 - 100 fL MCH 31.2 26.0 - 34.0 pg MCHC 33.6 30.0 - 36.0 g/dL RDW 13.1 11.5 - 14.5 % MPV 10.3 7.5 - 12.5 fL Neutrophils Auto 71.4 % Immature Granulocytes 0.7 % Lymphocytes Auto 20.3 % Monocytes Auto 5.6 % Eosinophils Auto 1.5 % Basophils Auto 0.5 % Abs Neutrophils Auto 8.09 (H) 2.00 - 7.50 Thou/uL Abs Immature Granulocytes 0.08 0.00 - 0.10 Thou/uL Abs Lymphocytes Auto 2.30 1.50 - 4.50 Thou/uL Abs Monocytes Auto 0.63 0.20 - 1.50 Thou/uL Abs Eosinophils Auto 0.17 0.00 - 0.70 Thou/uL Abs Basophils Auto 0.06 0.00 - 0.20 Thou/uL Comprehensive Metabolic Panel Result Value Ref Range Glucose 101 (H) 65 - 99 mg/dL Blood Urea Nitrogen (BUN) 15 8 - 21 mg/dL Creatinine 0.8 0.4 - 1.1 mg/dL eGFR >90 >59 Sodium 138 136 - 145 mmol/L Potassium 3.3 (L) 3.4 - 5.3 mmol/L Chloride 103 98 - 107 mmol/L CO2 23 22 - 33 mmol/L Calcium 9.2 8.7 - 10.5 mg/dL Alkaline Phosphatase 51 32 - 122 U/L Aspartate Aminotrans (AST) 29 10 - 50 U/L Alanine Aminotrans (ALT) 15 10 - 50 U/L Bilirubin, Total 0.5 0.2 - 1.0 mg/dL Protein, Total 7.1 6.3 - 8.3 g/dL Albumin 4.3 3.5 - 5.0 g/dL BUN/Creatinine Ratio 19 10.0 - 25.0 Ratio Globulin 2.8 1.5 - 3.9 g/dL Albumin/Globulin Ratio 1.5 1.0 - 3.0 Ratio Anion Gap 12 7 - 17 Lipase Result Value Ref Range Lipase 26 13 - 60 U/L Amylase Result Value Ref Range Amylase 66 28 - 100 U/L Calcium, Ionized Result Value Ref Range Calcium, Ionized 1.10 (L) 1.17 - 1.33 mmol/L Magnesium Result Value Ref Range Magnesium 1.8 1.6 - 2.7 mg/dL Phosphorus Result Value Ref Range Phosphorus 2.4 (L) 2.7 - 4.5 mg/dL Creatine Kinase (CK) Result Value Ref Range Creatine Kinase (CK) 97 24 - 173 U/L Lactic Acid, Plasma Result Value Ref Range Lactic Acid 1.7 0.5 - 1.9 mmol/L Protime-INR Result Value Ref Range Anticoagulant NO ANTI COAGULANT MEDS Prothrombin Time (PT) 11.6 10.0 - 13.5 seconds INR 1.0 Partial Thromboplastin Time (PTT) Result Value Ref Range Anticoagulant NO ANTI COAGULANT MEDS Partial Thromboplastin Time (PTT) 25 25 - 36 seconds Ethanol, Blood Result Value Ref Range Ethanol, Quantitative, Blood Troponin T, High Sensitivity Result Value Ref Range High Sensitivity Troponin T Delta (Change) NO PREVIOUS RESULT POCT Glucose, Fingerstick Result Value Ref Range POC Glucose 87 65 - 99 mg/dL Type and Screen Result Value Ref Range ABO/Rh O POSITIVE Antibody Screen NEGATIVE Specimen Expiration 09/27/2023 Blood Bank Comment Second Sample needed for Blood Transfusion ABO Confirmation Result Value Ref Range ABO/Rh O POSITIVE I have reviewed the patient's labs, medications and imaging. ASSESSMENT & PLAN: This is a 28 y.o.female with no significant past medical history presents to the emergency department as a full trauma after fall during rock-climbing from 20-30 feet with headstrike (not on anticoagulation) and no LOC. Upon presentation to the ED patient was ambulatory with assistance, hemodynamically stable with blood pressure 127/81, heart rate 83 bpm, O2 saturation 100% on room air with GCS 15. Patient complained of left elbow, left hip pain although pelvis is stable. Patient was found to have laceration of the left elbow and Ancef/Tdap were given. CT sparks scan negative for acute traumatic injuries. Cervical collar cleared clinically. Concussion -symptomatic care -zofran prn nausea -encourage fluids -avoid excessive screen time/bright lights -Tylenol/Motrin prn headache Laceration to the left elbow~2cm -Tdap/Ancef given -xray negative for acute fracture -washed out and repaired with four, 4-0 ethilon sutures -suture removal in 10 days -bacitracin daily -avoid tub baths or swimming -okay to shower daily Incidental Findings: Hyperattenuating soft tissue prominence in the anterior mediastinum. 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 Further evaluation with dedicated nonemergent MRI can be performed if clinically Indicated -patient notified of above findings -recommend follow up with PCP DISPOSITION: Per ED Marry Padron APRN 09/25/2023 12:39 AM [facility] 09-25-2023 Emergency department Note Provider at bedside repairing elbow lac, pt NAD on RA, RR even and unlabored. VSS. C collar removed by , pt rpovided snack and water, fluids started per JUN. Valarie Longoria RN 09/25/237 [facility] 09-25-2023 Security Compliance Engineer Authentication Interface Message Text Provider at bedside repairing elbow lac, pt NAD on RA, RR even and unlabored. VSS. C collar removed by , pt rpovided snack and water, fluids started per JUN. Valarie Longoria RN 09/25/237 [facility] 09-24-2023 Hospital Discharg e maksim Ortiz DO - 09/24/2023 11:53 PM EDT Thank you for coming to [facility] ED. You were seen today for fall while rock climbing. We performed blood tests and imaging including Full body sparks scans and electrolyte tests. Which showed no evidence for fractures or severe injuries. Your left elbow laceration was repaired with sutures. We believe you to be stable for discharge at this time. You are being discharged with follow up as attached to these papers. Please return to the ED if you have any fever chills, nausea vomiting, or any concerning symptoms. documented in this encounter [facility] 09-24-2023 Emergency department Note Pt resting in stretcher, NAD, RR even and unlabored on RA. Pt endorsing pain to left lower back and left elbow. C-collar remains in place, waiting for final CT reads. Pt is A&Ox4, speaking in full sentences, calm and cooperative. Valarie Longoria RN 09/24/232321 [facility] 09-24-2023 Security Compliance Engineer Authentication Interface Message Text Pt resting in stretcher, NAD, RR even and unlabored on RA. Pt endorsing pain to left lower back and left elbow. C-collar remains in place, waiting for final CT reads. Pt is A&Ox4, speaking in full sentences, calm and cooperative. Valarie Longoria RN 09/24/232321 [facility] 09-24-2023 Security Compliance Engineer Authentication Interface Message Text Attestation signed by Juanis Marcum MD at 09/25/2023 11:14 AM I personally saw the patient and performed a substantive portion of the visit including all aspects of the medical decision-making. I reviewed the AP's or resident's findings, supervised the management of the patient, made/approved the management plan and take responsibility for the patient management. Further, I agree with the controlled substance prescriptions(s) and/or order(s) as written by the AP, if any. My note reflects my personal findings on my history and exam. Chief Complaint: Fall Other Pertinent History: Jeremy Fraser is a 28 y.o. female with no pmh who presents to the emergency department as a full trauma status post a fall while rockclimbing. Patient states she was rockclimbing in the harness and a miscommunication between her person and her safety the layperson caused her to fall about 30 feet and landed on her left sided back and hit her head on the ground. She did not lose consciousness she did not start bleeding. She suffered a laceration to her left elbow brought immediately to the emergency department for further evaluation. Allergies has No Known Allergies. Medications is not on any long-term medications. Past Medical History has no past medical history on file. Surgical History has no past surgical history on file. Social History Allergies, Medications, Medical, Surgical, and Social History were reviewed as documented above. REVIEW OF SYSTEMS As documented in HPI Physical Exam: BP 116/64 (BP Location: Left arm, Patient Position: Lying) Pulse 81 Temp 97.6 ?F (36.4 ?C) (Tympanic) Resp 16 SpO2 99% Vital signs reviewed. Constitutional: Well-appearing, no apparent respiratory distress. Head: Normocephalic, atraumatic. Eyes: PERRL, EOMI, Conjunctivae clear, no icterus. Ear, Nose, Mouth, Throat: Grossly normal inspection. Normal voice, handling secretions normally. Neck: Supple, no nuchal signs. Cardiovascular: Normal S1, S2. No extra heart sounds. Respiratory: Breath sounds clear and equal bilaterally, no wheezes, no rales, no rhonchi. Gastrointestinal: Normal bowel sounds. Soft, non-tender, non-distended. No rebound or guarding. No Cruz's sign. Back: No tenderness, erythema or step-offs. No CVA tenderness. Musculoskeletal: No peripheral edema. Normal range of motion. Skin: Normal for age and race, grossly normal temperature and turgor. No acute rash. Neurologic: Alert and appropriate, no apparent acute deficits. Psychiatric: Mood and manner are appropriate. Grooming and personal hygiene are appropriate. Hematologic/Lymphatic: No significant bruising, petechia, or purpura. I Reviewed any nurses notes, vital signs, home medication lists, other history or pertinent diagnostic tests available. Recent Labs 09/24/232119 WBC 11.3* HGB 12.3 PLT 288 NEUTROREL 71.4 IMMGRAN 0.7 LYMPHSREL 20.3 MONOSREL 5.6 EOSREL 1.5 BASOREL 0.5 Recent Labs 09/24/23211909/24/232122 GLUC 101* 87 BUN 15 -- CREAT 0.8 -- BUNCREAT 19 -- EGFR >90 -- NA 138 -- K 3.3* -- CO2 23 -- CL 103 -- ANIONGAP 12 -- MG 1.8 -- PHOS 2.4* -- AST 29 -- ALT 15 -- Recent Labs 09/24/232119 PTT 25 INR 1.0 Recent Labs 09/24/232119 HSTNT DELTATROPT NO PREVIOUS RESULT LACTIC 1.7 CKTOTAL 97 LIPASE 26 No results for input(s): COLORUA , CLARITYUA , LEUKOCYTESUA , NITRITEUA , KETONESUA , BLOODUA , WBCUA , WBCCLUMPSUA , HCGQUALU in the last 72 hours. XR Elbow 2 views-Left Preliminary Result 1. No acute fracture or dislocation. 2. Mild soft tissue swelling around the ankle. Sepideh Palacio MD Diagnostic Diver Tender CT Head w/o contrast Preliminary Result No acute intracranial pathology. No acute fracture or malalignment in the cervical spine. Jan Schultz MD Diagnostic Diver Tender CT Cervical spine w/o contrast Preliminary Result No acute intracranial pathology. No acute fracture or malalignment in the cervical spine. Jan Schultz MD Diagnostic Diver Tender CT Chest Abdomen Pelvis with IV Contrast Preliminary Result 1. No acute traumatic injuries are identified in the chest, abdomen, and pelvis. 2. No fracture or malalignment in the thoracolumbar spine. 3. Hyperattenuating soft tissue prominence in the anterior mediastinum. 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 Further evaluation with dedicated nonemergent MRI can be performed if clinically indicated. Sepideh Palacio MD Diagnostic Diver Tender CT Reconstructed Data Without IV Contrast - Thoracic / Lumbar Spine Preliminary Result 1. No acute traumatic injuries are identified in the chest, abdomen, and pelvis. 2. No fracture or malalignment in the thoracolumbar spine. 3. Hyperattenuating soft tissue prominence in the anterior mediastinum. 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 Further evaluation with dedicated nonemergent MRI can be performed if clinically indicated. Sepideh Palacio MD Diagnostic Diver Tender XR Pelvis 1 or 2 views-Portable Preliminary Result No acute fracture. Sepideh Palacio MD Diagnostic Diver Tender XR Chest 1 view-Portable Preliminary Result No acute pulmonary disease. Sepideh Palacio MD Diagnostic Diver Tender Medical Decision Making: Jeremy Fraser is a 28 y.o. female presenting as a full trauma status post a fall off of a rockclimbing wall for about 30 feet landing on her back and hitting her head with no loss of consciousness. Evaluation in red pod shows an intact primary survey with only a laceration to the left elbow and some tenderness around her right hip for injuries. DDX: -Polytrauma, left elbow fracture Plan: -CT abdomen pelvis, CT head, CT C-spine. -Full trauma sepsis order set labs. -Will get an x-ray of the left elbow to evaluate for any fracture. -Likely anticipating discharge. Work up remarkable for: -CT sparks scan resulted as negative for any acute injuries. Will likely clear the patient c-collar. -Will perform an ambulation trial and administer some wound care to the left elbow. -Likely will be proceeding with discharge at this time. Consultants: -Trauma Social Determinants: -None Identified. Disposition: -Discharge Tatianna Valentino MD Resident 09/24/23 9203 [facility] 09-24-2023 Security Compliance Engineer Authentication Interface Message Text Chief Complaint: Fall Other Pertinent History: Jeremy Fraser is a 28 y.o. female with no pmh who presents to the emergency department as a full trauma status post a fall while rockclimbing. Patient states she was rockclimbing in the harness and a miscommunication between her person and her safety the layperson caused her to fall about 30 feet and landed on her left sided back and hit her head on the ground. She did not lose consciousness she did not start bleeding. She suffered a laceration to her left elbow brought immediately to the emergency department for further evaluation. Allergies has No Known Allergies. Medications is not on any long-term medications. Past Medical History has no past medical history on file. Surgical History has no past surgical history on file. Social History Allergies, Medications, Medical, Surgical, and Social History were reviewed as documented above. REVIEW OF SYSTEMS As documented in HPI Physical Exam: BP 116/64 (BP Location: Left arm, Patient Position: Lying) Pulse 81 Temp 97.6 ?F (36.4 ?C) (Tympanic) Resp 16 SpO2 99% Vital signs reviewed. Constitutional: Well-appearing, no apparent respiratory distress. Head: Normocephalic, atraumatic. Eyes: PERRL, EOMI, Conjunctivae clear, no icterus. Ear, Nose, Mouth, Throat: Grossly normal inspection. Normal voice, handling secretions normally. Neck: Supple, no nuchal signs. Cardiovascular: Normal S1, S2. No extra heart sounds. Respiratory: Breath sounds clear and equal bilaterally, no wheezes, no rales, no rhonchi. Gastrointestinal: Normal bowel sounds. Soft, non-tender, non-distended. No rebound or guarding. No Cruz's sign. Back: No tenderness, erythema or step-offs. No CVA tenderness. Musculoskeletal: No peripheral edema. Normal range of motion. Skin: Normal for age and race, grossly normal temperature and turgor. No acute rash. Neurologic: Alert and appropriate, no apparent acute deficits. Psychiatric: Mood and manner are appropriate. Grooming and personal hygiene are appropriate. Hematologic/Lymphatic: No significant bruising, petechia, or purpura. I Reviewed any nurses notes, vital signs, home medication lists, other history or pertinent diagnostic tests available. Recent Labs 09/24/232119 WBC 11.3* HGB 12.3 PLT 288 NEUTROREL 71.4 IMMGRAN 0.7 LYMPHSREL 20.3 MONOSREL 5.6 EOSREL 1.5 BASOREL 0.5 Recent Labs 09/24/23211909/24/232122 GLUC 101* 87 BUN 15 -- CREAT 0.8 -- BUNCREAT 19 -- EGFR >90 -- NA 138 -- K 3.3* -- CO2 23 -- CL 103 -- ANIONGAP 12 -- MG 1.8 -- PHOS 2.4* -- AST 29 -- ALT 15 -- Recent Labs 09/24/232119 PTT 25 INR 1.0 Recent Labs 09/24/232119 HSTNT DELTATROPT NO PREVIOUS RESULT LACTIC 1.7 CKTOTAL 97 LIPASE 26 No results for input(s): COLORUA , CLARITYUA , LEUKOCYTESUA , NITRITEUA , KETONESUA , BLOODUA , WBCUA , WBCCLUMPSUA , HCGQUALU in the last 72 hours. XR Elbow 2 views-Left Preliminary Result 1. No acute fracture or dislocation. 2. Mild soft tissue swelling around the ankle. Sepideh Palacio MD Diagnostic Diver Tender CT Head w/o contrast Preliminary Result No acute intracranial pathology. No acute fracture or malalignment in the cervical spine. Jan Schultz MD Diagnostic Diver Tender CT Cervical spine w/o contrast Preliminary Result No acute intracranial pathology. No acute fracture or malalignment in the cervical spine. Jan Schultz MD Diagnostic Diver Tender CT Chest Abdomen Pelvis with IV Contrast Preliminary Result 1. No acute traumatic injuries are identified in the chest, abdomen, and pelvis. 2. No fracture or malalignment in the thoracolumbar spine. 3. Hyperattenuating soft tissue prominence in the anterior mediastinum. 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 Further evaluation with dedicated nonemergent MRI can be performed if clinically indicated. Sepideh Palacio MD Diagnostic Diver Tender CT Reconstructed Data Without IV Contrast - Thoracic / Lumbar Spine Preliminary Result 1. No acute traumatic injuries are identified in the chest, abdomen, and pelvis. 2. No fracture or malalignment in the thoracolumbar spine. 3. Hyperattenuating soft tissue prominence in the anterior mediastinum. 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 Further evaluation with dedicated nonemergent MRI can be performed if clinically indicated. Sepideh Palacio MD Diagnostic Diver Tender XR Pelvis 1 or 2 views-Portable Preliminary Result No acute fracture. Sepideh Palacio MD Diagnostic Diver Tender XR Chest 1 view-Portable Preliminary Result No acute pulmonary disease. Sepideh Palacio MD Diagnostic Diver Tender Medical Decision Making: Jeremy Fraser is a 28 y.o. female presenting as a full trauma status post a fall off of a rockclimbing wall for about 30 feet landing on her back and hitting her head with no loss of consciousness. Evaluation in red pod shows an intact primary survey with only a laceration to the left elbow and some tenderness around her right hip for injuries. DDX: -Polytrauma, left elbow fracture Plan: -CT abdomen pelvis, CT head, CT C-spine. -Full trauma sepsis order set labs. -Will get an x-ray of the left elbow to evaluate for any fracture. -Likely anticipating discharge. Work up remarkable for: -CT sparks scan resulted as negative for any acute injuries. Will likely clear the patient c-collar. -Will perform an ambulation trial and administer some wound care to the left elbow. -Likely will be proceeding with discharge at this time. Consultants: -Trauma Social Determinants: -None Identified. Disposition: -Discharge Tatianna Valentino MD Resident 09/24/232333 [facility] 09-24-2023 Emergency department Note Report given to LIANA Sheppard and care transferred at this time. Cameron Davis RN 09/24/232242 T [facility] 09-24-2023 Security Compliance Engineer Authentication Interface Message Text Report given to LIANA Sheppard and care transferred at this time. Cameron Davis RN 09/24/232242 [facility] 09-24-2023 Emergency department Note Pt resting on stretcher endorsing pearson/back pain. Pt RR equal and unlabored on RA, NS on monitor. Pt ok to move out of red per MD chartoff. Plan for transfer to 28 att Cameron Davis RN 09/24/232227 T [facility] 09-24-2023 Security Compliance Engineer Authentication Interface Message Text Pt resting on stretcher endorsing pearson/back pain. Pt RR equal and unlabored on RA, NS on monitor. Pt ok to move out of red per MD chartoff. Plan for transfer to 28 att Cameron Davis RN 09/24/232227 [facility] 09-24-2023 Security Compliance Engineer Authentication Interface Message Text Met with patient. She is alert and able to speak. RN states that she is doing well and they are just finishing up routine tests/exams. She states that she already called her mother. She does not need me to call or have her come down. She gave me permission to add her as an emergency administrative personal assistant. I also met with boyfriend to update him. I also updated his contact information in chart. Pt asked me to list him also. Pt and boyfriend reside together. SW will follow up as needed. [facility] 09-24-2023 History of Presen t illness Narrative Met with patient. She is alert and able to speak. RN states that she is doing well and they are just finishing up routine tests/exams. She states that she already called her mother. She does not need me to call or have her come down. She gave me permission to add her as an emergency administrative personal assistant. I also met with boyfriend to update him. I also updated his contact information in chart. Pt asked me to list him also. Pt and boyfriend reside together. SW will follow up as needed. documented in this encounter [facility] 09-24-2023 Progress note Formatting of t his note might be different from the original. XR at bedside [facility] 09-24-2023 Miscellaneous Notes XR at bedside Pt to CT with RN on zoll XR at bedside Tdap given Patient log rolled to right side while maintaining cervical spine precautions. Pt to hhed sent to red as full trauma after fall rocking climbing, pt fallen from 30ft onto rocks, +helmet, +HS,-LOC. Pt endorsing neck and back pain, pPt A+Ox4 following commands speaking clear sentences. All appropriate ED staff at bedside and trauma team paged out by triage documented in this encounter [facility] 09-24-2023 Progress note Formatting of t his note might be different from the original. Pt to CT with RN on zoll [facility] 09-24-2023 Progress note Formatting of t his note might be different from the original. XR at bedside [facility] 09-24-2023 Progress note Formatting of t his note might be different from the original. Tdap given [facility] 09-24-2023 Progress note Formatting of t his note might be different from the original. Patient log rolled to right side while maintaining cervical spine precautions. [facility] 09-24-2023 Progress note Formatting of t his note might be different from the original. Pt to ed sent [facility] as full trauma after fall rocking climbing, pt fallen from 30ft onto rocks, +helmet, +HS,-LOC. Pt endorsing neck and back pain, pPt A+Ox4 following commands speaking clear sentences. All appropriate ED staff at bedside and trauma team paged out by triage [facility] Evaluation note Diagnosis Injury while rock climbing- Primary documented [facility] this [facility]* Reason Comments Fall [facility] Additional Source Comments Scheduled Active and Recently Administ ered Medications (unrecognized section and content) Medication Order 09/23/2023 09/24/2023 09/25/2023 sodium chloride 0.9 % (NS) bolus (COMPLETED) 1,000 mL, Intravenous, Administer over 1 Hours, Once, On 09/24/23 at 2352, For 1 dose 0004 (New Bag - Provider: Valarie Longoria RN)0142 (Stopped - Provider: Valarie Longoria RN) ceFAZolin (ANCEF) 2 g in 20 mL SWFI syringe (premix) (COMPLETED) 2 g, Intravenous, Administer over 3 Minutes, Once, On Sat09/24/23 at 2123, For 1 dose, All antimicrobials used at [facility] require an indication. Please complete the following documentation. Surgical Prophylaxis 2148 (Given - Provider: Cameron Davis RN) PRN Medication Order 09/23/2023 09/24/2023 09/25/2023 iohexol (OMNIPAQUE) 350 mg/mL injection 130 mL (COMPLETED) 130 mL, Intravenous, Once in imaging, contrast, Starting on 09/24/23 at 2157, For 1 dose, Radiology Appointment 2156 (Given - Provider: Kaykay Burgess) FOR RECORDS PERTAINING TO PATIENTS WHO ARE OR HAVE BEEN ENROLLED IN A CHEMICAL DEPENDENCY/SUBSTANCEABUSE PROGRAM, SOME INFORMATION MAY BE OMITTED. This clinical summary was aggregated from multiple sources. Caution should be exercised in using it in the provision of clinical care. This summary normalizes information from multiple sources, and as a consequence, information in this document may materially change the coding, format and clinical context of patient data. In addition, data may be omitted in some cases. CLINICAL DECISIONS SHOULD BE BASED ON THE PRIMARY CLINICAL RECORDS. [employer] provides no warranty or guarantee of the accuracy or completeness of information in this document.The following information is based on time limited clinical information
--- OUTSIDE RECORDS SUMMARY | 2024-05-18 19:52 | XMS_ITS ---
Author Organization [facility] [employer] procurement professional [employer] Care Team Providers Care Green Ware Caster Name Role Phone JUANIS MARCUM Unavailable Unavailable Unavailable Unavailable Unavailable PAULINE HARDING Unavailable Unavailable PAULINE HARDING Unavailable Unavailable Unavailable Primary Care Provider Unavailrobert e Allergies Allergy Classification Reported Allergen(s) Allergy Type Date of Onset Reaction(s) Care Provider Facility Unclassified (1 source) ALLERGIES NOT ON FILE [facility] Encounters Encounter Date Encounter Type Encounter Diagnosis Care Provider Facility Start: 09-24-2023 12:00-0400 End: 09-25-2023 02:31-0400 Emergency department patient visit Activity, mountain climbing, rock climbing and wall climbing JUANIS Marcum MD Work Phone: [facility] Comment on above: Injury while rock cl imbing (Primary Dx) End: 09-25-2023 [id number] [facility] Emergency department [facility] Immunizations Immunization Date Immunization Notes Care Provider Fa cility 09-24-2023 tetanus toxoid, redu fannie diphtheria toxoid, and acellular pertussis vaccine, adsorbed Juanis Marcum MD Work Phone: [facility] Work Phone: Medications Completed/Discontinued Medications Medication [...] Date Payer Normalized Payer BLUE CROSS OUT [facility] BLUE CROSS/BLUE SHIELD [id number] 04-22-2023 [id number] Plan of Treatment Date Care Activity Detail Author Start: 09-23-2033 DTaP/Tdap/Td Vaccine s (2 - Td or Tdap) DTaP/Tdap/Td Vaccines (2 - Td or Tdap) [facility] Start: 11-21-2023 Administration of influenza vaccine Influenza Vaccine [facility] Start: 12-21-2022 COVID-19 Vaccine ( season) COVID-19 Vaccine ( season) [facility] Start: 06-26-2015 Microscopic observat ion [Identifier] in Cervix by Cyto stain Pap Smear (Ages 21-65) [facility] Start: 2013 Hepatitis B Vaccines (1 of 3 - 19+ 3-dose series) Hepatitis B Vaccines (1 of 3 - 19+ 3-dose series) [facility] Start: 06-26-2007 HIV Screening HIV Screening [facility] Start: 1994 Hepatitis C screening Hepatiti s C Virus Screening [facility] End: 09-24-2023 Amphetamine Screen, Urine Amphetamine Screen, Urine Lab Routine STAT for 1 Occurrences starting 09/24/2023 until 09/24/2023 [facility] Work Phone: Comment on above: STAT for 1 Occurrenc es starting 09/24/2023 until 09/24/2023 End: 09-24-2023 Benzodiazepine Screen, Urine Benzodiazepine Screen, Urine Lab Routine STAT for 1 Occurrences starting 09/24/2023 until 09/24/2023 [facility] Comment on above: STAT for 1 Occurrenc es starting 09/24/2023 until 09/24/2023 End: 09-24-2023 Cannabinoid Screen, Urine Cannabinoid Screen, Urine Lab Routine STAT for 1 Occurrences starting 09/24/2023 until 09/24/2023 [facility] Comment on above: STAT for 1 Occurrenc es starting 09/24/2023 until 09/24/2023 End: 09-24-2023 Cocaine Screen, Urine Cocaine Screen, Urine Lab Routine STAT for 1 Occurrences starting 09/24/2023 until 09/24/2023 [facility] Comment on above: STAT for 1 Occurrenc es starting 09/24/2023 until 09/24/2023 End: 09-24-2023 Fentanyl Screen, Urine Fentanyl Screen, Urine Lab Routine STAT for 1 Occurrences starting 09/24/2023 until 09/24/2023 [facility] Comment on above: STAT for 1 Occurrenc es starting 09/24/2023 until 09/24/2023 End: 09-24-2023 Opiate Screen, Urine Opiate Screen, Urine Lab Routine STAT for 1 Occurrences starting 09/24/2023 until 09/24/2023 [facility] Comment on above: STAT for 1 Occurrenc es starting 09/24/2023 until 09/24/2023 End: 09-24-2023 Phencyclidine (PCP) Screen, Urine Phencyclidine (PCP) Screen, Urine Lab Routine STAT for 1 Occurrences starting 09/24/2023 until 09/24/2023 [facility] Comment on above: STAT for 1 [...] group (Bld) Blood group O Rh(D) positive [facility] 09-23 22:36 -0400 <tr><td>ABO/Rh< /td><td>O POSITIVE</td><t d></td><td></td ><td>09/24/2023 10:33 PM EDT</td><td>[facility]</td><t d></td></tr> Amylaseon 09-24-2023 Amylase [Catalytic activity/Vol] 66 U/L 28 - 100 U/L [facility] 09-23 22:15 -0400 Amylase 66 28 - 100 U/L 09/24/2023 10:15 PM EDT [facility] Amylase SerPl-cCncon 024 Amylase [Catalytic activity/Vol] 66 28-100 U/L [facility] 09-23 22:15 -0400 Attachmentson 09-24-2023 Radiology Study observation (narrative) [facility] CBC, with Differentialon Basophils Auto (Bld) [#/Vol] 0.06 [facility] 09-23 21:47 -0400 <tr><td>Abs Basophils Auto</td><td>0. 06</td><td>0.00 - 0.20 Thou/uL</td><td ></td><td>09/23 9:47 PM EDT</td><td>[facility]</td><t d></td></tr> Basophils/100 WBC Auto (Bld) 0.5 % [facility] 09-23 21:47 -0400 Eosinophils Auto (Bld) [#/Vol] 0.17 [facility] 09-23 21:47 -0400 <tr><td>Abs Eosinophils Auto</td><td>0. 17</td><td>0.00 - 0.70 Thou/uL</td><td ></td><td>09/23 9:47 PM EDT</td><td>[facility]</td><t d></td></tr> Eosinophils/10 0 WBC Auto (Bld) 1.5 % [facility] 09-23 21:47 -0400 RBC Auto (Bld) [#/Vol] 3.94 Low [facility] 09-23 21:47 -0400 <tr><td>Red Blood Cell Count</td><td>< content>3.94</c ontent><content > (L)</content></ td><td>4.00 - 5.40 Mil/uL</td><td> </td><td>2023 9:47 PM EDT</td><td>[facility]</td><t d></td></tr> Hematocrit Auto (Bld) [Volume fraction] 36.6 35.0-47.0 % [facility] 09-23 21:47 -0400 Hemoglobin (Bld) [Mass/Vol] 12.3 11.7-15.7 g/dL [facility] 09-23 21:47 -0400 Lymphocytes Auto (Bld) [#/Vol] 2.30 [facility] 09-23 21:47 -0400 <tr><td>Abs Lymphocytes Auto</td><td>2. 30</td><td>1.50 - 4.50 Thou/uL</td><td ></td><td>09/23 9:47 PM EDT</td><td>[facility]</td><t d></td></tr> Lymphocytes/10 0 WBC Auto (Bld) 20.3 % [facility] 09-23 21:47 -0400 MCH Auto (RBC) [Entitic mass] 31.2 26.0-34.0 pg [facility] 09-23 21:47 -0400 MCHC Auto (RBC) [Mass/Vol] 33.6 30.0-36.0 g/dL [facility] 09-23 21:47 -0400 MCV Auto (RBC) [Entitic vol] 93 80-100 fL [facility] 09-23 21:47 -0400 Monocytes Auto (Bld) [#/Vol] 0.63 [facility] 09-23 21:47 -0400 <tr><td>Abs Monocytes Auto</td><td>0. 63</td><td>0.20 - 1.50 Thou/uL</td><td ></td><td>09/23 9:47 PM EDT</td><td>[facility]</td><t d></td></tr> Monocytes/100 WBC Auto (Bld) 5.6 % [facility] 09-23 21:47 -0400 Neutrophils Auto (Bld) [#/Vol] 8.09 High [facility] 09-23 21:47 -0400 <tr><td>Abs Neutrophils Auto</td><td><c ontent>8.09</co ntent><content> (H)</content></ td><td>2.00 - 7.50 Thou/uL</td><td ></td><td>09/23 9:47 PM EDT</td><td>[facility]</td><t d></td></tr> Neutrophils/10 0 WBC Auto (Bld) 71.4 % [facility] 09-23 21:47 -0400 Platelet mean volume Auto (Bld) [Entitic vol] 10.3 7.5-12.5 fL [facility] 09-23 21:47 -0400 Platelets Auto (Bld) [#/Vol] 288 [facility] 09-23 21:47 -0400 <tr><td>Platele t Count</td><td>2 88</td><td>150 - 450 Thou/uL</td><td ></td><td>09/23 9:47 PM EDT</td><td>[facility]</td><t d></td></tr> Erythrocyte distribution width Auto (RBC) [Ratio] 13.1 11.5-14.5 % [facility] 09-23 21:47 -0400 WBC Auto (Bld) [#/Vol] 11.3 High [facility] 09-23 21:47 -0400 <tr><td>White Blood Cell Count</td><td>< content>11.3</c ontent><content > (H)</content></ td><td>4.0 - 11.0 Thou/uL</td><td ></td><td>09/23 9:47 PM EDT</td><td>[facility]</td><t d></td></tr> Immature granulocytes/1 00 WBC Auto (Bld) 0.7 % [facility] 09-23 21:47 -0400 Immature granulocytes Auto (Bld) [#/Vol] 0.08 [facility] 09-23 21:47 -0400 <tr><td>Abs Immature Granulocytes</t d><td>0.08</td> <td>0.00 - 0.10 Thou/uL</td><td ></td><td>09/23 9:47 PM EDT</td><td>[facility]</td><t d></td></tr> CK SerPl-cCncon 09-24-2023 CK [Catalytic activity/Vol] 97 24-173 U/L [facility] 09-23 22:15 -0400 CT Chest Abdomen [...] if clinically indicated. Sepideh Palacio MD [employer] I personally reviewed the images and the Resident's preliminary report and AGREE with the report as it is now presented (RADPAL1). [place] 09-23 23:24 -0400 1. No acute traumatic injuries are identified in the chest, abdomen, and pelvis. 2. No fracture or malalignment in the thoracolumbar spine. 3. Hyperattenuatin g soft tissue prominence in the anterior mediastinum. 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 Further evaluation with dedicated nonemergent MRI can be performed if clinically indicated. Sepideh Palacio MD [employer] I personally reviewed the images and the [...] portions of the proximal femurs are intact. [place] 09-23 23:24 -0400 EXAMINATION: CT CHEST, ABDOMEN [...] if clinically indicated. Sepideh Palacio MD [employer] I personally reviewed the images and the Resident's preliminary report and AGREE with the report as it is now presented (RADPAL1). [facility] 09-23 23:24 -0400 Basil Pettit MD [...] if clinically indicated. Sepideh Palacio MD [employer] I personally reviewed the images and the Resident's preliminary report and AGREE with the report as it is now presented (RADPAL1). CT Head w/o contraston 09-23 No acute intracranial pathology. No acute fracture or malalignment in the cervical spine. Jan Schultz MD [employer] I personally reviewed the images and the Resident's preliminary report and AGREE with the report as it is now presented (RADPAL1). [place] 09-23 23:17 -0400 No acute intracranial pathology. No acute fracture or malalignment in the cervical spine. Jan Schultz MD [employer] I personally reviewed the images and the [...] portions of the lung apices are clear. [place] 09-23 23:17 -0400 EXAMINATION: CT HEAD AND [...] the cervical spine. Jan Schultz MD [employer] I personally reviewed the images and the Resident's preliminary report and AGREE with the report as it is now presented (RADPAL1). [facility] 09-23 23:17 -0400 Basil Pettit MD [...] the cervical spine. Jan Schultz MD [employer] I personally reviewed the images and the Resident's preliminary report and AGREE with the report as it is now presented (RADPAL1). Calcium, Ionizedon Calcium.ionize d [Mass/Vol] 1.10 mmol/L Low 1.17 - 1.33 mmol/L [facility] 09-23 22:37 -0400 Calcium, Ionized 1.10 (L) 1.17 - 1.33 mmol/L 09/24/2023 10:37 PM EDT [facility] Complete Blood Count w/ Diff erentialon 09-24-2023 Basophils/100 WBC Auto (Bld) 0.5 % [facility] 09-23 21:47 -0400 Basophils Auto 0.5 % 09/24/2023 9:47 PM T [facility] Eosinophils/10 0 WBC Auto (Bld) 1.5 % [facility] 09-23 21:47 -0400 Eosinophils Auto 1.5 % 09/24/2023 9:47 PM [facility] Hematocrit Auto (Bld) [Volume fraction] 36.6 % 35.0 - 47.0 % [facility] 09-23 21:47 -0400 Hematocrit 36.6 35.0 - 47.0 % 09/24/2023 9:47 PM [facility] Hemoglobin (Bld) [Mass/Vol] 12.3 g/dL 11.7 - 15.7 g/dL [facility] 09-23 21:47 -0400 Hemoglobin 12.3 11.7 - 15.7 g/dL 09/24/2023 9:47 PM T [facility] Lymphocytes/10 0 WBC Auto (Bld) 20.3 % [facility] 09-23 21:47 -0400 Lymphocytes Auto 20.3 % 09/24/2023 9:47 PM [facility] MCH Auto (RBC) [Entitic mass] 31.2 pg 26.0 - 34.0 pg [facility] 09-23 21:47 -0400 MCH 31.2 26.0 - 34.0 pg 09/24/2023 9:47 PM [facility] MCHC Auto (RBC) [Mass/Vol] 33.6 g/dL 30.0 - 36.0 g/dL [facility] 09-23 21:47 -0400 MCHC 33.6 30.0 - 36.0 g/dL 09/24/2023 9:47 PM [facility] MCV Auto (RBC) [Entitic vol] 93 fL 80 - 100 fL [facility] 09-23 21:47 -0400 MCV 93 80 - 100 fL 09/24/2023 9:47 PM [facility] Monocytes/100 WBC Auto (Bld) 5.6 % [facility] 09-23 21:47 -0400 Monocytes Auto 5.6 % 09/24/2023 9:47 PM T [facility] Neutrophils/10 0 WBC Auto (Bld) 71.4 % [facility] 09-23 21:47 -0400 Neutrophils Auto 71.4 % 09/24/2023 9:47 PM EDT [facility] Platelet mean volume Auto (Bld) [Entitic vol] 10.3 fL 7.5 - 12.5 fL [facility] 09-23 21:47 -0400 MPV 10.3 7.5 - 12.5 fL 09/24/2023 9:47 PM EDT [facility] Erythrocyte distribution width Auto (RBC) [Ratio] 13.1 % 11.5 - 14.5 % [facility] 09-23 21:47 -0400 RDW 13.1 11.5 - 14.5 % 09/24/2023 9:47 PM EDT [facility] Immature granulocytes/1 00 WBC Auto (Bld) 0.7 % [facility] 09-23 21:47 -0400 Immature Granulocytes 0.7 % 09/24/2023 9:47 PM EDT [facility] Comprehensive Metabolic Pane lucio 09-24-2023 ALT [Catalytic activity/Vol] 15 10-50 U/L [facility] 09-23 22:15 -0400 Albumin [Mass/Vol] 4.3 3.5-5.0 g/dL [facility] 09-23 22:15 -0400 ALP [Catalytic activity/Vol] 51 32-122 U/L [facility] 09-23 22:15 -0400 AST [Catalytic activity/Vol] 29 10-50 U/L [facility] 09-23 22:15 -0400 Bilirubin [Mass/Vol] 0.5 0.2-1.0 mg/dL [facility] 09-23 22:15 -0400 Urea nitrogen/Creat inine [Mass ratio] 19 [facility] 09-23 22:15 -0400 <tr><td>BUN/Cre atinine Ratio</td><td>1 9</td><td>10.0 - 25.0 Ratio</td><td>< /td><td> 024 10:15 PM EDT</td><td>[facility]</td><t d></td></tr> Calcium [Mass/Vol] 9.2 8.7-10.5 mg/dL [facility] 09-23 22:15 -0400 Chloride [Moles/Vol] 103 98-107 mmol/L [facility] 09-23 22:15 -0400 CO2 [Moles/Vol] 23 22-33 mmol/L [facility] 09-23 22:15 -0400 Creatinine [Mass/Vol] 0.8 0.4-1.1 mg/dL [facility] 22:15 -0400 Glucose [Mass/Vol] 101 High 65-99 mg/dL [facility] 09-23 22:15 -0400 (L) Fasting: <100 mg/dL, Non-Fasting: <200 mg/dL (ADA 2004) Potassium [Moles/Vol] 3.3 Low 3.4-5.3 mmol/L [facility] 09-23 22:15 -0400 Protein [Mass/Vol] 7.1 6.3-8.3 g/dL [facility] 09-23 22:15 -0400 Sodium [Moles/Vol] 138 136-145 mmol/L [facility] 09-23 22:15 -0400 Urea nitrogen [Mass/Vol] 15 8-21 mg/dL [facility] 09-23 22:15 -0400 GFR/1.73 sq M.predicted CKD-EPI (S/P/Bld) [Vol rate/Area] >90 >59 [facility] 09-23 22:15 -0400 (L) CKD-EPI (2020) in mL/min/1.73 sq meters. Globulin Calc (S) [Mass/Vol] 2.8 1.5-3.9 g/dL [facility] 09-23 22:15 -0400 Albumin/Globul in [Mass ratio] 1.5 [facility] 09-23 22:15 -0400 <tr><td>Albumin /Globulin Ratio</td><td>1 .5</td><td>1.0 - 3.0 Ratio</td><td>< /td><td> 024 10:15 PM EDT</td><td>[facility]</td><t d></td></tr> Anion gap (Bld) [Moles/Vol] 12 7 - 17 [facility] 09-23 22:15 -0400 <tr><td>Anion Gap</td><td>12< /td><td>7 - 17</td><td></td ><td>09/24/2023 10:15 PM EDT</td><td>[facility]</td><t d></td></tr> ALT [Catalytic activity/Vol] 15 U/L 10 - 50 U/L [facility] 09-23 22:15 -0400 Alanine Aminotrans (ALT) 15 10 - 50 U/L 09/24/2023 10:15 PM EDT [facility] Albumin [Mass/Vol] 4.3 g/dL 3.5 - 5.0 g/dL [facility] 09-23 22:15 -0400 Albumin 4.3 3.5 - 5.0 g/dL 09/24/2023 10:15 PM T [facility] ALP [Catalytic activity/Vol] 51 U/L 32 - 122 U/L [facility] 09-23 22:15 -0400 Alkaline Phosphatase 51 32 - 122 U/L 09/24/2023 10:15 PM T [facility] AST [Catalytic activity/Vol] 29 U/L 10 - 50 U/L [facility] 09-23 22:15 -0400 Aspartate Aminotrans (AST) 29 10 - 50 U/L 09/24/2023 10:15 PM T [facility] Bilirubin [Mass/Vol] 0.5 mg/dL 0.2 - 1.0 mg/dL [facility] 09-23 22:15 -0400 Bilirubin, Total 0.5 0.2 - 1.0 mg/dL 09/24/2023 10:15 PM T [facility] Calcium [Mass/Vol] 9.2 mg/dL 8.7 - 10.5 mg/dL [facility] 09-23 22:15 -0400 Calcium 9.2 8.7 - 10.5 mg/dL 09/24/2023 10:15 PM [facility] Chloride [Moles/Vol] 103 mmol/L 98 - 107 mmol/L [facility] 09-23 22:15 -0400 Chloride 103 98 - 107 mmol/L 09/24/2023 10:15 PM [facility] CO2 [Moles/Vol] 23 mmol/L 22 - 33 mmol/L [facility] 09-23 22:15 -0400 CO2 23 22 - 33 mmol/L 09/24/2023 10:15 PM [facility] Creatinine [Mass/Vol] 0.8 mg/dL 0.4 - 1.1 mg/dL [facility] 09-23 22:15 -0400 Creatinine 0.8 0.4 - 1.1 mg/dL 09/24/2023 10:15 PM [facility] Glucose [Mass/Vol] 101 mg/dL High 65 - 99 mg/dL [facility] 09-23 22:15 -0400 Glucose 101 (H) 65 - 99 mg/dL 09/24/2023 10:15 PM [facility] Comment on above: Fasting: <100 mg/dL, Non-Fasting: <200 m g/dL (ADA 2005) Potassium [Moles/Vol] 3.3 mmol/L Low 3.4 - 5.3 mmol/L [facility] 09-23 22:15 -0400 Potassium 3.3 (L) 3.4 - 5.3 mmol/L 09/24/2023 10:15 PM [facility] Protein [Mass/Vol] 7.1 g/dL 6.3 - 8.3 g/dL [facility] 09-23 22:15 -0400 Protein, Total 7.1 6.3 - 8.3 g/dL 09/24/2023 10:15 PM [facility] Sodium [Moles/Vol] 138 mmol/L 136 - 145 mmol/L [facility] 09-23 22:15 -0400 Sodium 138 136 - 145 mmol/L 09/24/2023 10:15 PM [facility] Urea nitrogen [Mass/Vol] 15 mg/dL 8 - 21 mg/dL [facility] 09-23 22:15 -0400 Blood Urea Nitrogen (BUN) 15 8 - 21 mg/dL 09/24/2023 10:15 PM T [facility] GFR/1.73 sq M.predicted CKD-EPI (S/P/Bld) [Vol rate/Area] <PINF >90 59 - PINF [facility] 09-23 22:15 -0400 eGFR >90 >59 09/24/2023 10:15 PM T [facility] Comment on above: CKD-EPI (2020) in mL/min/1.73 sq meters. Globulin Calc (S) [Mass/Vol] 2.8 g/dL 1.5 - 3.9 g/dL [facility] 09-23 22:15 -0400 Globulin 2.8 1.5 - 3.9 g/dL 09/24/2023 10:15 PM [facility] Creatine Kinase (CK)on 09-23 CK [Catalytic activity/Vol] 97 U/L 24 - 173 U/L [facility] 09-23 22:15 -0400 Creatine Kinase (CK) 97 24 - 173 U/L 09/24/2023 10:15 PM [facility] Emergency Department (DEEDS) variableson 09-24-2023 Interpretation and review of laboratory results Abnormal [facility] 09-23 22:37 -0400 Ethanol SerPl-mCncon 024 Ethanol [Mass/Vol] <11 <11 mg/dL [facility] 09-23 22:15 -0400 (L) * FOR MEDICAL PURPOSES ONLY * Ethanol, Bloodon 09-24-2023 Ethanol [Mass/Vol] <11 >NINF mg/dL NINF - 11 mg/dL [facility] 09-23 22:15 -0400 Ethanol, Quantitative, Blood <11 <11 mg/dL 09/24/2023 10:15 PM [facility] Comment on above: * FOR MEDICAL PURPOSES ONLY * High Sensitivity Troponin To n 09-24-2023 Troponin T.cardiac [Mass/Vol] <6 <15 ng/L [facility] 09-23 22:15 -0400 Delta NO PREVIOUS RESULT <3 [facility] 09-23 22:15 -0400 IONIZED CALCIUMon 09-24-2023 Calcium.ionize d [Mass/Vol] 1.10 Low 1.17-1.33 mmol/L [facility] 09-23 22:37 -0400 Lactate SerPl-sCncon 024 Lactate [Moles/Vol] 1.7 0.5-1.9 mmol/L [facility] 09-23 22:04 -0400 Lactic Acid, Plasmaon 2023 Lactate [Moles/Vol] 1.7 mmol/L 0.5 - 1.9 mmol/L [facility] 09-23 22:04 -0400 Lactic Acid 1.7 0.5 - 1.9 mmol/L 09/24/2023 10:04 PM [facility] Lipaseon 09-24-2023 Lipase [Catalytic activity/Vol] 26 U/L 13 - 60 U/L [facility] 09-23 22:15 -0400 Lipase 26 13 - 60 U/L 09/24/2023 10:15 PM [facility]19 [facility] Lipase [Catalytic activity/Vol] 26 13-60 U/L [facility] 09-23 22:15 -0400 Magnesiumon 09-24-2023 Magnesium [Mass/Vol] 1.8 mg/dL 1.6 - 2.7 mg/dL [facility] 09-23 22:15 -0400 Magnesium 1.8 1.6 - 2.7 mg/dL 09/24/2023 10:15 PM [facility] Magnesium SerPl-mCncon 09-23 Magnesium [Mass/Vol] 1.8 1.6-2.7 mg/dL [facility] 09-23 22:15 -0400 No Panel Informationon 09-23 [facility] 09-23 23:37 -0400 [facility] 09-23 22:37 -0400 POC Glucoseon 09-24-2023 Glucose [Mass/Vol] 87 mg/dL 65-99 mg/dL [facility] 09-23 21:24 -0400 POCT Glucose, Fingerstickon 09-24-2023 Glucose (Bld) [Mass/Vol] 87 mg/dL 65 - 99 mg/dL [facility] 09-23 21:24 -0400 POC Glucose 87 65 - 99 mg/dL 09/24/2023 9:24 PM EDT [facility] 09-23 21:24 -0400 PTon 09-24-2023 INR Coag (PPP) [Relative time] 1.0 [facility] 09-23 22:13 -0400 <tr><td>INR</td ><td><content>1 .0</content></t d><td></td><td> </td><td>2023 10:13 PM EDT</td><td>[facility]</td><t d></td></tr> Comment on above: INR Therapeutic Ranges: Standard dose an ticoagulant 2.0 to 3.0, High dose anticoagulant 2.5-3.5. PT Coag (PPP) [Time] 11.6 [facility] 09-23 22:13 -0400 <tr><td>Prothro mbin Time (PT)</td><td>11 .6</td><td>10.0 - 13.5 seconds</td><td ></td><td>09/23 10:13 PM EDT</td><td>[facility]</td><t d></td></tr> Anticoagulant NO ANTI COAGULANT MEDS [facility] 09-23 21:22 -0400 PTTon 09-24-2023 aPTT Coag (PPP) [Time] 25 [facility] 09-23 22:13 -0400 <tr><td>Partial Thromboplastin Time (PTT)</td><td>2 5</td><td>25 - 36 seconds</td><td ></td><td>09/23 10:13 PM EDT</td><td>[facility]</td><t d></td></tr> Phosphate SerPl-mCncon 09-23 Phosphate [Mass/Vol] 2.4 Low 2.7-4.5 mg/dL [facility] 09-23 22:15 -0400 Phosphoruson 09-24-2023 Phosphate [Mass/Vol] 2.4 mg/dL Low 2.7 - 4.5 mg/dL [facility] 09-23 22:15 -0400 Phosphorus 2.4 (L) 2.7 - 4.5 mg/dL 09/24/2023 10:15 PM EDT [facility] Protime-INRon 09-24-2023 Anticoagulant NO ANTI COAGULANT MEDS [facility] 09-23 22:13 -0400 Anticoagulant NO ANTI COAGULANT MEDS 09/24/2023 9:22 PM EDT Troponin T, High Sensitivity on 09-24-2023 Troponin T.cardiac [Mass/Vol] <6 >NINF ng/L NINF - 15 ng/L [facility] 09-23 22:15 -0400 High Sensitivity Troponin T <6 <15 ng/L 09/24/2023 10:15 PM EDT [facility] Delta (Change) NO PREVIOUS RESULT NINF - 3 [facility] 09-23 22:15 -0400 Delta (Change) NO PREVIOUS RESULT <3 09/24/2023 10:15 PM EDT [facility] Type and Screenon 09-24-2023 Blood group antibody screen Ql Negative [facility] 09-23 22:33 -0400 Antibody Screen NEGATIVE 09/[facility] Expiration 09/27/2023 [facility] 09-23 22:33 -0400 Specimen Expiration 09/27/2023 09/24/2023 10:33 PM EDT [facility] Blood Bank Comment Second Sample needed for Blood Transfusion [facility] 09-23 22:33 -0400 Blood Bank Comment Second Sample needed for Blood Transfusion 09/24/2023 10:33 PM EDT [facility] XR Chest 1 view-Portableon 0 09-24-2023 No acute pulmonary disease. Sepideh Palacio MD [employer] I personally reviewed the images and the Resident's preliminary report and AGREE with the report as it is now presented ([email or web address]). [place] 09-23 22:55 -0400 No acute pulmonary disease. Sepideh Palacio MD [employer] I personally reviewed the images and the [...] within normal limits. No acute osseous findings. [place] 09-23 22:55 -0400 EXAMINATION: XR CHEST CLINICAL [...] acute pulmonary disease. Sepideh Palacio MD [employer] I personally reviewed the images and the Resident's preliminary report and AGREE with the report as it is now presented ([email or web address]). [facility] 09-23 22:55 -0400 Obed Carrizales, - 09/24/2023 EXAMINATION: XR CHEST CLINICAL INFORMATION: Status post fall 30ft COMPARISON: None available. TECHNIQUE: Supine view of the chest was obtained. FINDINGS: Lungs are adequately expanded. No focal consolidation. No pleural effusion or pneumothorax. Cardiomediastin al silhouette is within normal limits. No acute osseous findings. IMPRESSION: No acute pulmonary disease. Sepideh Palacio MD [employer] I personally reviewed the images and the Resident's preliminary report and AGREE with the report as it is now presented ([email or web address]). XR Elbow 2 views-Lefton 06-0 1. No acute fracture or dislocation. 2. Mild soft tissue swelling around the ankle. Sepideh Palacio MD [employer] I personally reviewed the images and the Resident's preliminary report and AGREE with the report as it is now presented (RADPAL1). [place] 09-23 23:37 -0400 1. No acute fracture or dislocation. 2. Mild soft tissue swelling around the ankle. Sepideh Palacio MD [employer] I personally reviewed the images and the [...] alignment is maintained. Joint spaces are maintained. [place] 09-23 23:37 -0400 EXAMINATION: XR ELBOW, LEFT [...] around the ankle. Sepideh Palacio MD [employer] I personally reviewed the images and the Resident's preliminary report and AGREE with the report as it is now presented ([email or web address]). [facility] 09-23 23:37 -0400 Basil Pettit MD [...] around the ankle. Sepideh Palacio MD [employer] I personally reviewed the images and the Resident's preliminary report and AGREE with the report as it is now presented ([email or web address]). XR Pelvis 1 or 2 views-[facility] 09-24-2023 No acute fracture. Sepideh Palacio MD [employer] I personally reviewed the images and the Resident's preliminary report and AGREE with the report as it is now presented ([email or web address]). [place] 09-23 22:57 -0400 No acute fracture. Sepideh Palacio MD [employer] I personally reviewed the images and the [...] stool burden. IUD projects over the pelvis. [place] 09-23 22:57 -0400 EXAMINATION: XR PELVIS CLINICAL [...] No acute fracture. Sepideh Palacio MD [employer] I personally reviewed the images and the Resident's preliminary report and AGREE with the report as it is now presented ([email or web address]). [facility] 09-23 22:57 -0400 Obed Carrizales DO [...] No acute fracture. Sepideh Palacio MD [employer] I personally reviewed the images and the Resident's preliminary report and AGREE with the report as it is now presented (RADPAL1). No Panel Information (PVISIT) : [id number] [facility] APPT STATUS (PVISIT) : [id number]~(A PPT_STATUS) APPT STATUS: 1 [facility] APPT STATUS (PVISIT) : [id number]~(A PPT_STATUS) APPT STATUS: 6 [facility] Social History Date Type Detail Facility Start: 09-24-2023 Gender identity Identifies as female gender (finding) [facility] Start: 09-24-2023 Sexual orientation Heterosexual (fin ding) [facility] Start: 1995 Sex Assigned At Female H [facility] Tobacco smoking stat [facility] Tobacco smoking consumption unknown [facility] Vital Signs Date Time Vital Sign Value Performing Clinician Facility 09-25-2023 00:06-0400 BP (Blood pressure) 112/60mm[Hg] Juanis Marcum MD Work Phone: [facility] 09-25-2023 00:06-0400 Heart rate 90 /min Juanis Marcum MD Work Phone: [facility] 09-25-2023 00:06-0400 Respiratory rate 16 /min Juanis Marcum MD Work Phone: [facility] 09-25-2023 00:06-0400 SaO2% (BldA) [Mass fraction] 98 % Juanis Marcum MD Work Phone: [facility] 09-24-2023 22:45-0400 Body temperature 97.59 [degF] Juanis Marcum MD Work Phone: [facility] Clinical Notes 09-24-2023 to 09-25-2023 Valarie Longoria RN - 09/25/2023 1:47 AM Mary Anne Longoria RN - 09/25/2023 1:47 AM Mary Anne Longoria RN - 09/25/2023 12:07 AM Mary Anne Longoria RN - 09/24/2023 11:20 PM EDTDischarge Instructions Note Date & Type Note Facility 09-25-2023 Investigation Manager Authentication Interface Message Text History Chief Complaint [...] [WK] DO Juanis Lozano MD 09/25/23 1114 [facility] 09-25-2023 Investigation Manager Authentication Interface Message Text Received patient in [...] Course User Index [WK] Iris Ortiz DO [facility] 09-25-2023 Emergency department Note Pt ambulated with steady gate, NAD on RA, pt assisted back into bed and resting comfortably. Valarie Longoria RN 09/25/23 0147 [facility] Work Phone: 09-25-2023 Investigation Manager Authentication Interface Message Text Pt ambulated with steady gate, NAD on RA, pt assisted back into bed and resting comfortably. Valarie Longoria RN 09/25/23 0147 [facility] 09-25-2023 Emergency department Note Pt ambulated with [...] per MD chartoff. Plan for transfer to [facility] Cameron Davis RN 09/24/232227 documented in this encounter [facility] 09-25-2023 Procedure note Procedure: Laceration repair [...] complications Pauline Harding PA-C 09/25/23 12:44 AM [facility] 09-25-2023 Investigation Manager Authentication Interface Message Text Procedure: Laceration repair [...] complications Pauline Harding PA-C 09/25/23 12:44 AM [facility] 09-25-2023 Procedure note Procedure: Laceration repair The [...] 09/25/23 12:44 AM documented in this encounter [facility] 09-25-2023 Investigation Manager Authentication Interface Message Text TRAUMA SURGERY CONSULT [...] around the ankle. Sepideh Palacio MD [employer] I personally reviewed the images and the Resident's preliminary report and AGREE with the report as it is now presented (RADPAL1). CT Head w/o contrast Final Result No acute intracranial pathology. No acute fracture or malalignment in the cervical spine. Jan Schultz MD [employer] I personally reviewed the images and the Resident's preliminary report and AGREE with the report as it is now presented (RADPAL1). CT Cervical spine w/o contrast Final Result No acute intracranial pathology. No acute fracture or malalignment in the cervical spine. Jan Schultz MD [employer] I personally reviewed the images and the [...] if clinically indicated. Sepideh Palacio MD [employer] I personally reviewed the images and the [...] if clinically indicated. Sepideh Palacio MD [employer] I personally reviewed the images and the Resident's preliminary report and AGREE with the report as it is now presented (RADPAL1). XR Pelvis 1 or 2 views-Portable Final Result No acute fracture. Sepideh Palacio MD [employer] I personally reviewed the images and the Resident's preliminary report and AGREE with the report as it is now presented (RADPAL1). XR Chest 1 view-Portable Final Result No acute pulmonary disease. Sepideh Palacio MD [employer] I personally reviewed the images and the [...] ED Marry Padron, JULIO 09/25/2023 12:39 AM [facility] 09-25-2023 Investigation Manager Authentication Interface Message Text Attestation signed by [...] addendums and exceptions. The history is relevant [id number] female presenting as a full trauma status [...] Traumatic injuries identified. Patient disposition per ED. Leonides aHtch MD Attending Surgeon Acute Care Surgery (Trauma, [...] around the ankle. Sepideh Palacio MD [employer] I personally reviewed the images and the Resident's preliminary report and AGREE with the report as it is now presented (RADPAL1). CT Head w/o contrast Final Result No acute intracranial pathology. No acute fracture or malalignment in the cervical spine. Jan Schultz MD [employer] I personally reviewed the images and the Resident's preliminary report and AGREE with the report as it is now presented (RADPAL1). CT Cervical spine w/o contrast Final Result No acute intracranial pathology. No acute fracture or malalignment in the cervical spine. Jan Schultz MD [employer] I personally reviewed the images and the [...] if clinically indicated. Sepideh Palacio MD [employer] I personally reviewed the images and the [...] if clinically indicated. Sepideh Palacio MD [employer] I personally reviewed the images and the Resident's preliminary report and AGREE with the report as it is now presented (RADPAL1). XR Pelvis 1 or 2 views-Portable Final Result No acute fracture. Sepideh Palacio MD [employer] I personally reviewed the images and the Resident's preliminary report and AGREE with the report as it is now presented (RADPAL1). XR Chest 1 view-Portable Final Result No acute pulmonary disease. Sepideh Palacio MD [employer] I personally reviewed the images and the [...] ED Marry Padron APRN 09/25/2023 12:39 AM [facility] 09-25-2023 Emergency department Note Provider at bedside repairing elbow lac, pt NAD on RA, RR even and unlabored. VSS. C collar removed by , pt rpovided snack and water, fluids started per JUN. Valarie Longoria RN 09/25/237 [facility] 09-25-2023 Investigation Manager Authentication Interface Message Text Provider at bedside repairing elbow lac, pt NAD on RA, RR even and unlabored. VSS. C collar removed by , pt rpovided snack and water, fluids started per JUN. Valarie Longoria RN 09/25/237 [facility] 09-24-2023 Hospital Discharg e maksim Ortiz DO - 09/24/2023 11:53 PM EDT Thank you for coming to [facility] ED. You were seen today for fall [...] any concerning symptoms. documented in this encounter [facility] 09-24-2023 Emergency department Note Pt resting in stretcher, NAD, RR even and unlabored on RA. Pt endorsing pain to left lower back and left elbow. C-collar remains in place, waiting for final CT reads. Pt is A&Ox4, speaking in full sentences, calm and cooperative. Valarie Longoria RN 09/24/232321 [facility] 09-24-2023 Investigation Manager Authentication Interface Message Text Pt resting in stretcher, NAD, RR even and unlabored on RA. Pt endorsing pain to left lower back and left elbow. C-collar remains in place, waiting for final CT reads. Pt is A&Ox4, speaking in full sentences, calm and cooperative. Valarie Longoria RN 09/24/232321 [facility] 09-24-2023 Investigation Manager Authentication Interface Message Text Attestation signed by [...] around the ankle. Sepideh Palacio MD Diagnostic Machine [employer] CT Head w/o contrast Preliminary Result No acute intracranial pathology. No acute fracture or malalignment in the cervical spine. Jan Schultz MD Diagnostic Machine [employer] CT Cervical spine w/o contrast Preliminary Result No acute intracranial pathology. No acute fracture or malalignment in the cervical spine. Jan Shcultz MD Diagnostic Machine [employer] CT Chest Abdomen Pelvis with IV Contrast [...] if clinically indicated. Sepideh Palacio MD Diagnostic Machine [employer] CT Reconstructed Data Without IV Contrast - [...] if clinically indicated. Sepideh Palacio MD [employer] XR Pelvis 1 or 2 views-Portable Preliminary Result No acute fracture. Sepideh Palacio MD [employer] XR Chest 1 view-Portable Preliminary Result No acute pulmonary disease. Sepideh Palacio MD [employer] Medical Decision Making: Jeremy Fraser is a [...] Disposition: -Discharge Tatianna Valentino MD Resident 09/24/23 9842 [facility] 09-24-2023 Investigation Manager Authentication Interface Message Text Chief Complaint: Fall [...] around the ankle. Sepideh Palacio MD Diagnostic Machine [employer] CT Head w/o contrast Preliminary Result No acute intracranial pathology. No acute fracture or malalignment in the cervical spine. Jan Schultz MD Diagnostic Machine [employer] CT Cervical spine w/o contrast Preliminary Result No acute intracranial pathology. No acute fracture or malalignment in the cervical spine. Jan Schultz MD Diagnostic Machine [employer] CT Chest Abdomen Pelvis with IV Contrast [...] if clinically indicated. Sepideh Palacio MD Diagnostic Machine Fe[employer] CT Reconstructed Data Without IV Contrast - [...] if clinically indicated. Sepideh Palacio MD [employer] XR Pelvis 1 or 2 views-Portable Preliminary Result No acute fracture. Sepideh Palacio MD [employer] XR Chest 1 view-Portable Preliminary Result No acute pulmonary disease. Sepideh Palacio MD Diagnostic Machine [employer] Medical Decision Making: Jeremy Fraser is a [...] Disposition: -Discharge Tatianna Valentino MD Resident 09/24/232333 [facility] 09-24-2023 Emergency department Note Report given to LIANA Sheppard and care transferred at this time. Cameron Davis RN 09/24/232242 T [facility] 09-24-2023 Investigation Manager Authentication Interface Message Text Report given to LIANA Sheppard and care transferred at this time. Cameron Davis RN 09/24/232242 [facility] 09-24-2023 Emergency department Note Pt resting on stretcher endorsing pearson/back pain. Pt RR equal and unlabored on RA, NS on monitor. Pt ok to move out of red per MD chartoff. Plan for transfer to 29 att Cameron Davis RN 09/24/232227 T [facility] 09-24-2023 Investigation Manager Authentication Interface Message Text Pt resting on stretcher endorsing pearson/back pain. Pt RR equal and unlabored on RA, NS on monitor. Pt ok to move out of red per MD chartoff. Plan for transfer to 29 att Cameron Davis RN 09/24/232227 [facility] 09-24-2023 Investigation Manager Authentication Interface Message Text Met with patient. She is alert and able to speak. RN states that she is doing well and they are just finishing up routine tests/exams. She states that she already called her mother. She does not need me to call or have her come down. She gave me permission to add her as an emergency chairperson anesthesiology. I also met with boyfriend to update him. I also updated his contact information in chart. Pt asked me to list him also. Pt and boyfriend reside together. SW will follow up as needed. [facility] 09-24-2023 History of Presen t illness Narrative Met with patient. She is alert and able to speak. RN states that she is doing well and they are just finishing up routine tests/exams. She states that she already called her mother. She does not need me to call or have her come down. She gave me permission to add her as an emergency chairperson anesthesiology. I also met with boyfriend to update him. I also updated his contact information in chart. Pt asked me to list him also. Pt and boyfriend reside together. SW will follow up as needed. documented in this encounter [facility] 09-24-2023 Progress note Formatting of t his note might be different from the original. XR at bedside [facility] 09-24-2023 Miscellaneous Notes XR at bedside [...] out by triage documented in this encounter [facility] 09-24-2023 Progress note Formatting of t his note might be different from the original. Pt to CT with RN on zoll [facility] 09-24-2023 Progress note Formatting of t his note might be different from the original. XR at bedside [facility] 09-24-2023 Progress note Formatting of t his note might be different from the original. Tdap given [facility] 09-24-2023 Progress note Formatting of t his note might be different from the original. Patient log rolled to right side while maintaining cervical spine precautions. [facility] 09-24-2023 Progress note Formatting of t his note might be different from the original. Pt to ed sent to [facility] as full trauma after fall rocking climbing, pt fallen from 30ft onto rocks, +helmet, +HS,-LOC. Pt endorsing neck and back pain, pPt A+Ox4 following commands speaking clear sentences. All appropriate ED staff at bedside and trauma team paged out by triage [facility] Evaluation note Diagnosis Injury while rock climbing- Primary documented in this [facility] Reason Comments Fall [facility] Additional Source Comments Scheduled Active and [...] For 1 dose, All antimicrobials used at [facility] require an indication. Please complete the following [...] BE BASED ON THE PRIMARY CLINICAL RECORDS. [employer] provides no warranty or guarantee of the accuracy or completeness of information in this document.The following information is based on time limited clinical information
== END 2024-05-18 16:33 | disposition home or self-care (01) ==
PROVIDERS: PCP Internal Medicine; Visit Provider Internal Medicine
DX: Z23 Encounter for immunization (principal)

== ENCOUNTER 2024-07-13 07:29 | Outpatient (AMB) | payer OTHER, SELFPAY ==
--- NOTE | 2024-07-13 07:37 | MHC.PC.OV ---
Vital Signs 07/13/24 07:38 Height 5 ft 6 in Weight 159 lb BMI 25.7 BP 108/62 Blood Pressure Location Lt brachial Position Sitting Intake Visit Reasons: PE Intake Note: Patient here for a physical exam Youth Minister Required: No Accompanied by: Self / Same As Patient Allergies No Known Allergies Allergy (Verified 07/13/24 07:45) Medication List - Last Reconciled 07/13/24 by Devi Boss MD cetirizine (Zyrtec) 10 mg PO DAILY PRN ruxolitinib 1.5% (Opzelura) 1 appl topical BID Tobacco use date assessed: 07/13/24 Dental Screening Dental Screen Date: 07/13/24 Did you have a dental visit in the last 12 months?: No Did you have a dental problem in the last 6 months where you did not have access to dental care?: No Was dental information given to patient?: Patient has dentist HPI HPI Comments History of Present Illness Details The patient is a 29-year-old female presenting with an annual physical examination. Her history includes management of eczema effectively with a prescribed topical cream, Opzulera, which she applies as needed. A significant medical event in her history is a traumatic fall while rock climbing, which prompted a full trauma workup revealing abnormalities including thymic hyperplasia. Her immunization status includes a Tdap vaccine administered in 2017, with the next due in 2027. Screening for cervical health was most recently conducted with a Pap smear in February 2023. She maintains an awareness of her family history, noting that her father had heart disease before his in 2012, and her mother contends with diabetes and arthritis. The patient is asymptomatic regarding findings of thymic hyperplasia. Her past blood work showed no remarkable issues in cholesterol, glucose levels, liver, and kidney function. - Tdap vaccination was administered in 2017; next due in 2027. - Last Pap smear done in February 2023; next appointment in September this year. - Blood work last year showed normal results in glucose, cholesterol, liver and kidney function, and thyroid. [facility] Medical History Eczema Surgical History No pertinent past surgical history Family History (Updated 07/13/24 @ 07:52 by Devi Boss MD) Mother Diabetes Arthritis Father Heart disease Maternal Grandfather Lymphoma Maternal Grandmother Colon cancer Social History Household Members: Significant Other Housing: House Alcohol intake: current Alcohol intake frequency: a few times a month Alcohol type: hard liquor Patient Tobacco Use Status: Never used Tobacco e-Cigarette/Vaping Use: Never Used Second Hand Smoke Exposure: No service: No Current occupational status: employed Current occupation: nurse Current occupational exposures/hazards: No Sexual orientation: Straight/Heterosexual Gender identity: Female Cognitive needs: No Hearing needs: No Vision needs: Yes Questionnaire PHQ-9 Over the last 2 weeks, how often have you been bothered by any of the following problems? 1. Little interest or pleasure in doing things: not at all 2. Feeling down, depressed, or hopeless: not at all 3. Trouble falling or staying asleep, or sleeping too much: not at all 4. Feeling tired or having little energy: not at all 5. Poor appetite or overeating: not at all 6. Feeling bad about yourself - or that you are a failure or have let yourself or your family down: not at all 7. Trouble concentrating on things, such as reading the newspaper or watching television: not at all 8. Moving or speaking so slowly that other people could have noticed. Or the opposite - being so fidgety or restless that you have been moving around a lot more than usual: not at all 9. Thoughts that you would be better off or of hurting yourself in some way: not at all Total score: 0 Depression Screening Interpretation: Negative Depression Screening Done: Yes 45832 - PHQ-9 Billing: Yes Source: Developed by Drs. Omid Jaeger, Ju Hicks, Salomón Valdivia and colleagues, with an educational ady from [email or web address]. Thrive Questionnaire Date Thrive assessed: 07/13/24 I am a: Patient What is your living situation today?: I have a steady place to live Within the past 12 months, did the food you bought not last and you didn't have the money to get more?: Never true Within the past 12 months, did you worry whether your food would run out before you got money to buy more?: Never true Do you have trouble paying for medicines?: No Do you have trouble getting transportation to medical appointments?: No Do you have trouble paying your heating and electricity bill?: No Do you have trouble taking care of your child, family member or friend?: No Do you have trouble with day-to-day activities such as bathing, preparing meals, shopping, managing finances, etc.?: No Are you currently unemployed and looking for a job?: No Are you interested in more education?: No Please select the resources that you would like help with: None Currently or been in a relationship where the following occur: No concerns reported THRIVE Score: 0 AUDIT C Alcohol Use Questionnaire (AUDIT-C) 1. How often do you have a drink containing alcohol?: Monthly or less 2. How many drinks containing alcohol do you have on a typical day when you are drinking?: 1 or 2 3. How often do you have six or more drinks on one occasion?: Never Total Score: 1 Score Reviewed/Action Taken: No CHUCKIE-7 AMB Questionnaire CHUCKIE-7 Date CHUCKIE - 7 assessed: 07/13/24 Feeling nervous, anxious, or on edge: 0 = Not at all Not being able to stop or control worryin = Not at all Worrying too much about different things: 0 = Not at all Trouble relaxin = Not at all Being so restless that it is hard to sit still: 0 = Not at all Becoming easily annoyed or irritable: 0 = Not at all Feeling afraid as if something awful might happen: 0 = Not at all Total CHUCKIE-7 score (0-4 normal; 5-9 mild; 10-14 moderate; 15-21 severe): 0 Source: Developed by Drs. Omid Jaeger, Ju Hicks, Salomón Valdivia and colleagues, with an educational ady from [email or web address]. CHUCKIE-7 Assessment Billing CHUCKIE-7 Assessment Tool: CHUCKIE-7 Assessment 03229 Review of Systems Const All systems reviewed & are unremarkable except as noted in HPI and below Card Denies chest pain at rest, Denies chest pain with activity, Denies edema, Denies irregular heart rhythm, Denies claudication, Denies dyspnea, Denies dyspnea on exertion, Denies orthopnea, Denies paroxysmal nocturnal dyspnea and Denies slow heart rate Resp Denies cough, Denies dyspnea and Denies dyspnea on exertion GI Denies abdominal pain, Denies change in bowel habits, Denies excessive flatus, Denies nausea and Denies vomiting Denies urinary incontinence, Denies urinary hesitancy and Denies urinary urgency Musc Denies abnormal gait, Denies atrophy, Denies deformity and Denies limited range of motion Skin/Breast Denies bleeding lesions, Denies changing lesions and Denies rash Neuro Denies abnormal gait, Denies behavioral changes and Denies lack of coordination Psych Denies behavioral changes Physical exam (Primary Care) Vital Signs: Last Vital Signs BP 108/62 07/13/24 07:38 BMI result Body Mass Index 25.7 Tobacco/Smoking Status: Tobacco use Status Tobacco use date assessed 07/13/24 07/13/24 07:44 Patient Tobacco Use Status Never used Tobacco 07/13/24 07:44 e-Cigarette/Vaping Use Never Used 07/13/24 07:44 PHQ-9: PHQ-9 Score PHQ-9: Total score 0 07/13/24 07:47 Depression Screening Interpretation: Negative Thrive Assessment: Date of Thrive Assessment Date Thrive assessed 07/13/24 07/13/24 07:44 Currently or been in a relationship where the following occur: No concerns reported HENTX Head: Yes normal to inspection, Yes normocephalic and Yes atraumatic Ears: external ears normal Eyes General: appearance normal, both eyes and all related structures Eyelids: Yes eyelids normal Conjunctivae: conjunctivae normal Neck Neck: Yes normal visual inspection and Yes supple Resp Effort & Inspection: normal respiratory effort Auscultation: clear to auscultation bilaterally Cardio Jugular venous distension: no JVD Rate: regular rate Rhythm: regular rhythm Heart sounds: S1 normal heart sound present and S2 normal heart sound present GI Inspection: Yes normal to inspection Palpation (GI): Soft to palpation and nontender Auscultation: normal bowel sounds Skin General skin exam: no rashes or lesions noted Neuro General: no focal motor deficits Extrem General: Yes full ROM Psych Appearance: grossly normal Coding Level of Care Code Est Pt Level 3 (79129) Est Pt Prev Care 18-39y(06128) Diagnoses Physical exam Z00.00 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 Regarding the thymic hyperplasia, we will schedule an MRI to explore any necessary follow-up, alongside a referral to thoracic surgery. The evaluation is preventative, with no immediate indication for surgical intervention. We advised vigilance and maintained her health maintenance strategies, consistently monitoring vaccinations and routine screenings. Patient was informed and verbally consented to the use of an ambient scribe for clinic note documentation during this visit. I discussed with the patient the management options for her eczema, currently controlled with Opsulera cream, and confirmed she can seek refills through me. We reviewed her recent trauma history, which necessitated imaging and revealed thymic hyperplasia. We addressed these findings by planning further imaging and a thoracic evaluation as precautions despite her lack of symptoms. I outlined and reinforced her ongoing health maintenance regimes, including timely vaccinations and screenings. We discussed, in detail, the rationale behind her follow-up plans with transparency regarding potential outcomes and ensured she consented to proceed with the outlined next steps. 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 - Expect a follow-up call to schedule an MRI and thoracic surgery evaluation for thymic hyperplasia. - Maintain regular health screenings and vaccination schedules. - Report any new or changing symptoms promptly. - Schedule an annual physical examination and routine tests as advised.
[2024-07-13 07:38] VITALS: BP 108/62; BMI 25.7
== END 2024-07-13 08:02 | disposition home or self-care (01) ==
LOC: HO.HMCH 07:30
PROVIDERS: PCP Internal Medicine; Visit Provider Internal Medicine
DX: Z00.00 Encounter for general adult medical examination without abnormal findings (principal); E32.0 Persistent hyperplasia of thymus

== ENCOUNTER → 2024-07-13 07:29 | Outpatient (BNVA) | payer OTHER, SELFPAY | PROVIDERS: PCP Internal Medicine; Visit Provider Internal Medicine | DX: Z00.00 Encounter for general adult medical examination without abnormal findings (principal); E32.0 Persistent hyperplasia of thymus | CPT/HCPCS: 96127 ==

== ENCOUNTER → 2024-07-27 08:23 | Outpatient (BNV) | payer OTHER, SELFPAY | PROVIDERS: PCP Internal Medicine; Visit Provider Radiology Diagnostic Radiology | DX: E32.0 Persistent hyperplasia of thymus (principal) | CPT/HCPCS: 71552 ==

== ENCOUNTER 2024-07-27 08:41 | Outpatient (REF) | payer OTHER, SELFPAY ==
--- NOTE | ~2024-07-27 | MR_ITS ---
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 TECHNIQUE: Axial in and out of phase gradient echo T1, axial T2 and fat-suppressed T2, and sagittal and coronal T2-weighted MR images of the chest were obtained. Subsequently, axial and coronal fat-suppressed T1-weighted images were obtained after the intravenous administration of 7 mL Gadavist. COMPARISON: There are no prior studies for comparison. FINDINGS: There is a small amount of triangular soft tissue in the anterior mediastinum which is slightly hyperintense to muscle on T2-weighted images. This measures approximately 1.8 cm in greatest dimension. In and out of phase T1-weighted gradient echo images demonstrate heterogeneous loss of signal intensity on opposed phase imaging, compatible with intracellular lipid and residual thymic tissue rather than neoplasm. There is no mediastinal lymphadenopathy. The heart is normal in size. There is no pleural or pericardial effusion. The thoracic aorta is normal in caliber. The visualized portions of the liver and spleen are unremarkable. 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 Electronically signed by: Omid Cain MD 07/28/2024 07:54 AM EDT
--- OUTSIDE RECORDS SUMMARY | 2024-07-27 09:20 | XMS_ITS | Clinical Summary ---
Author Organization [facility] Address [address] [place] [address] Care Team Providers Care Ground Products Director Name Role Phone Unavailable Primary Care Provider Unavailabl e Allergies No known active allergies Immunizations Name Administration Dates Next Due Tdap 09/24/2023 Social History Tobacco Use Types Packs/Day Years Used Date Smoking Tobacco: Never Assessed Sex and Gender Information Value Date Recorded Sex Assigned at Female 09/24/2023 10:54 PM EDT Gender Identity Female 09/24/2023 10:54 PM EDT Sexual Orientation Heterosexual (straight) 09/23 10:54 PM EDT Last Filed Vital Signs Vital Sign Reading Time Taken Comments Blood Pressure 112/60 09/25/2023 12:06 AM EDT Pulse 90 09/25/2023 12:06 AM EDT Temperature 36.4 ??C (97.6 ??F) 09/24/2023 10:45 PM E DT Respiratory Rate 16 09/25/2023 12:06 AM EDT Oxygen Saturation 98% 09/25/2023 12:06 AM EDT Inhaled Oxygen Concentration - - Weight - - Height - - Body Mass Index - - Plan of Treatment Health Maintenance Due Date Last Done Comments Hepatitis C Virus Screening 1994 HIV Screening 06/26/2007 Hepatitis B Vaccines (1 of 3 - 19+ 3-dose series) 2013 Pap Smear (Ages 21-65) 06/26/2015 Influenza Vaccine 11/21/2023 02/01/2016 COVID-19 Vaccine (2023-2 5 season) 2023 06/22/2020, 05/26/2020 DTaP/Tdap/Td Vaccines (2 - T d or Tdap) 09/23/2033 09/24/2023 HPV Vaccines Aged Out No longer eligi ble based on patient's age to complete this topic Pneumococcal Vaccine: Pediatric (0-5 Years) and At-Risk Patients (6 to 49 Years) Aged Out No longer eligible b ased on patient's age to complete this topic
--- OUTSIDE RECORDS SUMMARY | 2024-07-27 09:20 | XMS_ITS | Encounter Summary ---
Author Organization [facility] Address [address] [place] [address] Phone Care Team Providers Care Trend Investigator Name Role Phone Kelly Medley MD Primary Care Provider [phone] Encounter Details Date Type Department Care Team (Late st Contact Info) Description 10/26/2010 Documentation [facility] Family Medicine [address] [place], [place] [id number] Family Medicine, Physician [address], [place] [id number] Social History Tobacco Use Types Packs/Day Years Used Date Smoking Tobacco: Never Assessed Comments Unknown Sex and Gender Information Value Date Recorded Sex Assigned at Not on file Legal Sex Female 4:41 PM EDT Gender Identity Not on file Sexual Orientation Not on file documented as of this encounter Plan of Treatment Not on file documented as of this encounter Visit Diagnoses Not on filedocumented in this encounter Care Teams Trend Investigator Relationship Specialty Start Date End Date Kelly Medley MD [address] [place] [address] PCP - General 11/30/16 08/12/22 documented as of this encounter
--- OUTSIDE RECORDS SUMMARY | 2024-07-27 09:20 | XMS_ITS | Clinical Summary ---
Author Organization [facility] Address [address] [place] [id number] Phone Care Team Providers Care Warp Changer Name Role Phone Unavailable Primary Care Provider Unavailabl e Immunizations Immunization Administration Dates Next Due DTP 12/23/1995, 5,1994, 995 DTaP 5 07/05/1999 Hep B, ped/adol 04/02/1995,1994,1994 Hib (PRP-T) 10/10/1995, 5,1994, 995 IPV 07/05/1999, 5,1994, 995 MMR 07/04/1998,08/14/1995 Meningococcal Conj (Menactra) MCV4P 10/17/2005 Tdap 11/12/2007,10/17/2005 Varicella 11/12/2007,07/05/1999 Family History Relation Name Status Comments Brother Alive Brother: Alive and well Father Alive Father: Alive a nd well Mother Alive Mother: Alive a nd well Other Family history of Obesity Social History Tobacco Use Types Packs/Day Years Used Date Smoking Tobacco: Never Comments:Never smoker Comments Unknown Sex and Gender Information Value Date Recorded Sex Assigned at Not on file Legal Sex Female 4:41 PM EDT Gender Identity Not on file Sexual Orientation Not on file Last Filed Vital Signs Vital Sign Reading Time Taken Comments Blood Pressure 110/70 12/27/2011 12:00 AM EDT Pulse 80 10/24/2010 12:00 AM EDT Temperature 36.4 ??C (97.5 ??F) 08/06/2011 12:00 AM E DT Respiratory Rate - - Oxygen Saturation - - Inhaled Oxygen Concentration - - Weight 68 kg (150 lb) 12/27/2011 12:00 AM EDT Height 166.4 cm (5' 5.5 ) 12/27/2011 12:00 AM ED T Body Mass Index 24.58 12/27/2011 12:00 AM EDT Plan of Treatment Health Maintenance Due Date Last Done Comments DTaP,Tdap,and Td Vaccines (8 - Td or Tdap) 11/11/2017 11/12/2007, 10/17/2005, 07/05/1999, Additional history exists Influenza Vaccines (#1) 2023 COVID-19 Vaccine ( season) 2023 Hepatitis B Vaccines Completed 04/02/1995, 1994, 1994 HIB Vaccines Completed 10/10/1995, 09/1994, 1994, Additional history exists MMR Vaccines Completed 07/04/1998, 08/14/1995 IPV Vaccines Completed 07/05/1999, 09/1994, 1994, Additional history exists Meningococcal Vaccine Aged Out 10/17/2005 No lucio hanna eligible based on patient's age to complete this topic Varicella Vaccines Completed 11/12/2007, 07/05/1999 HPV Vaccines Aged Out No longer eligi ble based on patient's age to complete this topic Hepatitis A Vaccines Aged Out No long er eligible based on patient's age to complete this topic Men B Vaccine Aged Out No longer elig ible based on patient's age to complete this topic Pneumococcal Vaccine Aged Out No long er eligible based on patient's age to complete this topic
--- OUTSIDE RECORDS SUMMARY | 2024-07-27 09:21 | XMS_ITS | Encounter Summary ---
Author Organization [facility] Address [address] [place] [address] Phone Care Team Providers Care Director Of Vocational Training Name Role Phone Kelly Medley MD Primary Care Provider [phone] Encounter Details Date Type Department Care Team (Late st Contact Info) Description 12/06/2016 Conversion Encounter [facility] [address] [place] [address] Social History Tobacco Use Types Packs/Day Years [...] on filedocumented in this encounter Care Teams Director Of Vocational Training Relationship Specialty Start Date End Date Kelly Medley MD [address] [place] [address] PCP - General 11/30/16 08/12/22 documented as of this encounter
[2024-07-27] MEDS: gadobutroL 7.5 ML VIAL IVPUSH (09:41)
== END 2024-07-27 08:42 | disposition home or self-care (01) ==
LOC: HO.MRI 08:41
PROVIDERS: PCP Internal Medicine; Visit Provider Internal Medicine
DX: E32.0 Persistent hyperplasia of thymus (principal)
CPT/HCPCS: 71552; A9585